=== PATIENT | male | born 1970 | race Caucasian/White ===

== ENCOUNTER 2024-07-18 00:37 | Outpatient (CLI) | payer OTHER, SELFPAY ==
[2024-07-18] MEDS: Inhaler, Assist Device 1 EACH MC (10:56)
[2024-07-18] MEDS: Levalbuterol HFA 15 GM INH 4 PUFF IH (10:56)
--- NOTE | 2024-07-24 21:13 | W.PFT ---
Date of service: 07/18/24 Time of Service: 10:03 Pulmonary Function Test Result Indications: VÁSQUEZ Interpretation Spirometry: No airflow limitation. No bronchodilator response. Impression Normal spirometry Clinical Correlation therefore is recommended.
== END 2024-07-18 00:38 | disposition home or self-care (01) ==
LOC: RT 00:37
PROVIDERS: PCP Nurse Practitioner Family; Visit Provider Student in an Organized Health Care Education/Training Program
DX: R06.09 Other forms of dyspnea (principal)
CPT/HCPCS: 94060

== ENCOUNTER 2024-10-18 19:55 | Emergency (ER) | payer OTHER, SELFPAY ==
[2024-10-18] VITALS (29 sets, daily range): BP systolic 96–129; BP diastolic 50–82; PULSE 44–100; RESP 14–26; TEMP 37; O2SAT 95–100
--- NOTE | 2024-10-18 19:30 | RT.EKG_ITS ---
APPROVED REPORT Exam: Resting ECG Reason for Exam: chest pain Patient Location: E HR:100 bpm ECG Measurements Heart Rate 100 AXIS MT 147 P 78 QRSd 104 QRS 82 QT 342 T -57 QTc 442 Conclusion Sinus tachycardia, rate 100 No interval abnormalities Q wave and T wave inversion II, III, aVF. No priors available for comparison T wave inversion V5-V6 No STEMI
--- NOTE | 2024-10-18 20:15 | DI.RAD_ITS ---
Exam(s) XR PORTABLE CHEST AP EXAM: XR PORTABLE CHEST AP CLINICAL HISTORY: Chest pain. TECHNIQUE: 2D digital imaging was performed. COMPARISON: No exams were available for comparison FINDINGS: Single AP portable view. There is sternotomy wires. Heart size is upper normal. The mediastinum is not widened. Lungs are clear. No infiltrates nor obvious pleural effusions. IMPRESSION: No acute pulmonary findings on this single AP portable view of the chest. DATA REPOSITORY: RADIATION DOSE DELIVERED:
[2024-10-18 20:33] LABS: Abs Immature Grans 0.03 10^3/uL (0.0-0.06); HCT 40.2 % (40.0-50.0); HGB 13.7 g/dL (13.5-17.5); Immature Grans % 0.3 %; MCH 32.0 pg (27.0-33.0); MCHC 34.1 % (32.0-36.0); MCV 94 fL (80-95); MPV 10.9 fL (8.0-11.0); Platelet Count 383 10^3/uL (130-400); RBC 4.28 10^6/uL (4.36-5.78); RDW 13.3 % (11.8-14.1); RDW-SD 46.1 fL; WBC 10.97 10^3/uL (4.4-10.8)
[2024-10-18 20:48] LABS: INR 1.1 (0.9-1.1); PTT Activated 27.7 sec (20.6-30.2); Prothrombin Time 11.2 sec (9.1-11.1)
[2024-10-18 21:03] LABS: ALT 31 U/L (16-63); AST 15 U/L (15-37); Albumin 3.9 g/dL (3.4-5.0); Alkaline Phosphatase 69 U/L (46-116); Anion Gap 13.3 mmol/L (3-11); BUN 19 mg/dL (7-18); Bilirubin, Total 0.6 mg/dL (0.2-1.0); CO2 20.7 mmol/L (21.0-32.0); Calcium 8.5 mg/dL (8.5-10.1); Chloride 103 mmol/L (98-107); Estimated GFR 88.88 (mL/min/1.73m2); Glucose 247 mg/dL (74-106); Lipase 30 U/L (<78); Magnesium 1.9 mg/dL (1.8-2.4); Potassium 3.7 mmol/L (3.5-5.1); Sodium 137 mmol/L (136-145); Total Protein 7.0 g/dL (6.4-8.2); Troponin I 8 ng/L (<or=76)
--- NOTE | 2024-10-18 21:11 | DI.VRAD_ITS ---
PROCEDURE INFORMATION: Exam: XR Chest Exam date and time: 10/18/2024 8:38 PM Age: 54 years old Clinical indication: Other: Chest pain TECHNIQUE: Imaging protocol: Radiologic exam of the chest. Views: 1 view. COMPARISON: No relevant prior studies available. FINDINGS: Lungs: Unremarkable. No consolidation. Pleural spaces: Unremarkable. No pleural effusion. No pneumothorax. Heart/Mediastinum: Unremarkable. No cardiomegaly. Bones/joints: Sternotomy wires noted. Mild degenerative changes of the spine and shoulders. No acute osseous abnormality. IMPRESSION: No acute disease Dictated and Authenticated by: Santiago Flores MD. Orderin Vivek Jean MD
--- NOTE | 2024-10-18 21:30 | DI.CT_ITS ---
Exam(s) CT CHEST PE CTA EXAM: CT CHEST PE CTA CLINICAL HISTORY: Chest pain, Hx CAD. TECHNIQUE: Imaging Protocol: CT angiography of the chest was performed using pulmonary embolus protocol. Multi planar reconstructions were performed. CONTRAST MATERIAL: Intravenous: Omnipaque 350 Contrast volume: 70 cc COMPARISON: CR,XR XR PORTABLE CHEST AP from 10/18/2024 FINDINGS: CHEST: PULMONARY ARTERIES: There are no intraluminal filling defects to suggest acute pulmonary emboli. LUNGS: There are no infiltrates nor evidence of pulmonary infarction.. There are no pleural effusions. No significant lung nodules. MEDIASTINUM: There is no hilar nor mediastinal adenopathy. Visualized thyroid unremarkable. CARDIAC: There are sternotomy wires. Heart size is normal. There is no pericardial effusion.Caliber of the thoracic aorta is within normal limits. There is no significant shift of the interventricular septum. PARTIALLY VISUALIZED UPPERMOST ABDOMEN: No obvious findings OSSEOUS: No significant osseous lesions.No fractures evident. Post sternotomy changes in the sternum.. IMPRESSION: 1. No evidence of acute pulmonary emboli. No evidence of pulmonary infarction.No pleural effusions. 2. Sternotomy. Heart size normal. No pericardial effusion. No pulmonary edema. RADIATION DOSE DELIVERED: 74.97mGy.cm Total DLP DATA REPOSITORY: All CT scans at this facility are submitted to the National Radiology Data Registry (NRDR) Dose Index Registry (DIR) with the [employer] (A[employer]). RADIATION OPTIMIZATION: All CT scans at this facility use at least one of these dose optimization techniques: automated exposure control; mA and/or kV adjustment per patient size (includes targeted exams where dose is matched to clinical indication); or iterative reconstruction.
--- NOTE | 2024-10-18 21:33 | W.ED.GENAD ---
Discharge Plan Disposition Patient Disposition: [facility] Condition: Stable Discharge Details Clinical Impression: Chest pain Primary Care Provider: Sadia Griffin ED Provider: Miranda Doyle Home Meds and New Rx's Prescriptions: Continued atorvastatin 40 mg tablet 40 mg PO QHS metoprolol succinate 50 mg tablet extended release 24 hr 50 mg PO QAM aspirin 81 mg tablet,delayed release (DR/EC) 81 mg PO QAM metformin 1,000 mg tablet 1,000 mg PO BIDWMEAL nitroglycerin 0.4 mg tablet, sublingual 0.4 mg sublingual Q5M PRN (Reason: chest pain) pramipexole 0.25 mg tablet See Rx Instructions PO QHS Patient Comments: took 2 tabs 10/17/24 Rx Instructions: 1-2 tabs orally every day at bedtime omeprazole 20 mg capsule,delayed release(DR/EC) 20 mg PO QAM fludrocortisone 0.1 mg tablet 0.1 mg PO QAM disulfiram 500 mg tablet 500 mg PO QAM lamotrigine 100 mg tablet 100 mg PO QAM loratadine 10 mg tablet 10 mg PO QAM duloxetine 30 mg capsule,delayed release(DR/EC) 30 mg PO QAM pregabalin 100 mg capsule 100 mg PO TID quetiapine 50 mg tablet 50 mg PO DAILY PRN (Reason: anxiety or agitation) quetiapine 50 mg tablet extended release 24 hr 50 mg PO QHS Eliquis 5 mg tablet 5 mg PO BID Jardiance 25 mg tablet 25 mg PO QAM Discharge Instructions Instructions: Chest Pain, Adult ED Additional Instructions: At this time no evidence of acute heart attack, no evidence of aortic aneurysm or pulmonary embolism. Please follow-up with your manager publishing and/or PCP for further evaluation. Follow up with primary care provider in 3-5 days. Return to ED sooner if any worsening or concerns. Referrals: [facility]IOLOG[facility] [place] [OTHER, Cardiology] - Return if symptoms worsen Referral Note: ER follow up Clinical Impression: Chest pain Sadia Griffin [Primary Care Provider, Medicine] - 2 weeks Discharge Data Discharge Date/Time-TO BE ENTERED AT DEPARTURE: 10/18/24 23:04 HPI General Mode of arrival: EMS. Date/Time Provider Initiated Documentation: 10/18/24 20:26. Limitations to Documentation: no limitations. Information obtained by: patient, police, EMS, RN notes reviewed and old records reviewed. HPI Narrative: 54-year-old male presents to the ER with a chief complaint of left-sided chest pain that began this morning. He does have an extensive cardiac history is had open heart surgery reports that he was recently admitted at [facility] and discharged couple months ago had a cath. He states that he took nitro this morning before shower and was given 2 nitro sublingual prior to arrival with no relief. He reports dizziness and radiation into the back. Was given Aspirin 325 mg PO [employer]. Patient was recently taken to [facility] was there approximately an hour began starting to have chest pain. Patient does have a history of CAD, does take metformin, Jardiance, Eliquis atorvastatin 81 mg aspirin. Related Data Home Medications ?Medication ?Instructions ?Recorded ?Confirmed apixaban 5 mg tablet (Eliquis) 5 mg PO BID 10/18/24 10/18/24 aspirin 81 mg tablet,delayed 81 mg PO QAM 10/18/24 10/18/24 release atorvastatin 40 mg tablet 40 mg PO QHS 10/18/24 10/18/24 disulfiram 500 mg tablet 500 mg PO QAM 10/18/24 10/18/24 duloxetine 30 mg capsule,delayed 30 mg PO QAM 10/18/24 10/18/24 release empagliflozin 25 mg tablet 25 mg PO QAM 10/18/24 10/18/24 (Jardiance) fludrocortisone 0.1 mg tablet 0.1 mg PO QAM 10/18/24 10/18/24 lamotrigine 100 mg tablet 100 mg PO QAM 10/18/24 10/18/24 loratadine 10 mg tablet 10 mg PO QAM 10/18/24 10/18/24 metformin 1,000 mg tablet 1,000 mg PO BIDWMEAL 10/18/24 10/18/24 metoprolol succinate 50 mg 50 mg PO QAM 10/18/24 10/18/24 tablet,extended release 24 hr nitroglycerin 0.4 mg sublingual 0.4 mg sublingual Q5M PRN chest 10/18/24 10/18/24 tablet pain omeprazole 20 mg capsule,delayed 20 mg PO QAM 10/18/24 10/18/24 release pramipexole 0.25 mg tablet See Rx Instructions PO QHS 10/18/24 10/18/24 pregabalin 100 mg capsule 100 mg PO TID 10/18/24 10/18/24 quetiapine 50 mg tablet 50 mg PO DAILY PRN anxiety or 10/18/24 10/18/24 agitation quetiapine 50 mg tablet,extended 50 mg PO QHS 10/18/24 10/18/24 release 24 hr Allergies Allergy/AdvReac Type Severity Reaction Status Date / Time Penicillins Allergy Anaphylaxis Verified 10/18/24 20:01 shellfish derived Allergy Anaphylaxis Verified 10/18/24 20:01 Sulfa (Sulfonamide Allergy Skin Rash Verified 10/18/24 20:01 Antibiotics) bee pollen AdvReac Anaphylaxis Verified 10/18/24 20:01 General Stated Complaint: Chest Pain REINA: 3 Review of Systems All systems reviewed & are unremarkable except as noted in HPI and below Cardiovascular Cardiovascular: Reports as per HPI, Reports chest pain, Reports lightheadedness, Reports radiating jaw, neck or arm pain and Reports dyspnea Respiratory Respiratory: Reports dyspnea Gastrointestinal Gastrointestinal: Denies abdominal pain, Denies diarrhea and Denies nausea Exam Narrative Exam Narrative: Constitutional: Alert and oriented x3. Appears stated age. Normal body habitus. Head: Normocephalic, no trauma. Eyes: Pupils PERRL, Red reflex noted, EOM's intact. Eyelids symmetrical without lesions, discharge, or swelling. ENT: Bilateral TM's WNL, External ear normal to inspection, no mastoid TTP, swelling, or erythema, Nasal turbinates WNL, no nasal discharge. Normal dentition, Posterior pharynx WNL, no exudate. Chest: RRR, Normal S1, S2, distal pulses intact. Does have a midline vertical scar which is healed. Has Resp: Lungs clear to auscultation bilaterally, no wheezes, rales, or rhonchi. Abdomen: Soft, non-distended, Normoactive bowel sounds all 4 quads. Musculoskeletal: Normal gait, Moves all 4 extremities without difficulty. Skin: No suspicious rashes or lesions. Capillary refill less than 2 sec. Neurologic: Cranial nerves II-XII intact. Alert and oriented x 3. Motor: No deficits noted. Sensory: Intact bilaterally all 4 extremities. Hematologic/Lymphatic: No ecchymosis, no lymphadenopathy. Course Vital Signs Vital signs: Vital Signs Temperature 37.0 C 10/18/24 19:55 Pulse 98 H 10/18/24 19:55 Respiratory Rate 18 10/18/24 19:55 Blood Pressure 96/55 L 10/18/24 19:55 Pulse Oximetry 98 10/18/24 19:55 Temperature 37.0 C 10/18/24 19:55 Pulse 85 10/18/24 20:40 Pulse 85 10/18/24 20:40 Respiratory Rate 21 10/18/24 20:40 Blood Pressure 116/58 L 10/18/24 20:31 Blood Pressure Mean 75 10/18/24 20:31 Pulse Oximetry 95 10/18/24 20:40 Pain Level 7 10/18/24 19:55 Lab/Test Results Lab/Test Results: Laboratory Tests Range/Units 10/18/24 20:16 WBC (4.4-10.8) 10^3/uL 10.97 H RBC (4.36-5.78) 10^6/uL 4.28 L Hgb (13.5-17.5) g/dL 13.7 Hct (40.0-50.0) % 40.2 MCV (80-95) fL 94 MCH (27.0-33.0) pg 32.0 MCHC (32.0-36.0) % 34.1 RDW (11.8-14.1) % 13.3 Plt Count (130-400) 10^3/uL 383 MPV (8.0-11.0) fL 10.9 Immature Gran % % 0.3 Neutrophils % % 73.2 Lymphocytes % % 19.9 Monocytes % % 4.4 Eosinophils % % 0.9 Basophils % % 1.3 Nucleated RBC % (0.0-0.3) % 0.0 Absolute Neutrophils (1.2-6.7) 10^3/uL 8.03 H Absolute Lymphocytes (1.2-3.4) 10^3/uL 2.18 Absolute Monocytes (0.1-0.8) 10^3/uL 0.48 Absolute Eosinophils (0.0-0.7) 10^3/uL 0.10 Absolute Basophils (0.0-0.2) 10^3/uL 0.14 PT (9.1-11.1) sec 11.2 H INR (0.9-1.1) 1.1 APTT (20.6-30.2) sec 27.7 Sodium (136-145) mmol/L 137 Potassium (3.5-5.1) mmol/L 3.7 Chloride (98-107) mmol/L 103 Carbon Dioxide (21.0-32.0) mmol/L 20.7 L Anion Gap (3-11) mmol/L 13.3 H BUN (7-18) mg/dL 19 H Creatinine (0.70-1.30) mg/dL 1.0 Est GFR (CKD-EPI 2020) (mL/min/1.73m2) 88.88 Glucose (74-106) mg/dL 247 H Calcium (8.5-10.1) mg/dL 8.5 Magnesium (1.8-2.4) mg/dL 1.9 Total Bilirubin (0.2-1.0) mg/dL 0.6 AST (15-37) U/L 15 ALT (16-63) U/L 31 Alkaline Phosphatase (46-116) U/L 69 Troponin I (<or=76) ng/L 8 Total Protein (6.4-8.2) g/dL 7.0 Albumin (3.4-5.0) g/dL 3.9 Lipase (<78) U/L 30 Medical Decision Making Patient presents with slightly soft blood pressure 96/55, currently is 107/71, WBCs 10.97 RBCs 4.28, PT 11.2 seconds, anion gap 13.3 BUN 19 creatinine 1.0 glucose 247, initial troponin within normal limits at 8 lipase is 30. Chest x-ray shows no acute cardiopulmonary abnormality. EKG shows sinus tachycardia, no previous EKG available for comparison, please see official report. CT chest ordered to rule out PE versus AAA. Other differential diagnosis includes but not limited to NSTEMI, MS, CAD At this time patient has had 2 negative serial troponins, CT chest shows no evidence for PE no aortic aneurysm. Patient has remained hemodynamically stable. BUN is slightly elevated at 19, creatinine 1.0 glucose is elevated to 47. Patient does take Jardiance. Will instruct to continue with previously prescribed medications. Patient will be discharged into the care of law enforcement. Will encourage follow-up with PCP and/or manager publishing if symptoms persist. This text was generated using Convr[employer]ation system, please disregard any oddities of phrase or misspellings. Medical Records Medical records reviewed: Yes I reviewed the patient's medical records. Imaging Data Radiologic Study: Imaging: CT Scan Radiologist's impression: COMPARISON: CR XR PORTABLE CHEST AP 10/18/2024 8:38 PM FINDINGS: Pulmonary arteries: Normal. No pulmonary emboli. Aorta: Unremarkable. No aortic aneurysm. No aortic dissection. Lungs: Unremarkable. No consolidation. No masses. Pleural spaces: Unremarkable. No pneumothorax. No pleural effusion. Heart: Unremarkable. No cardiomegaly. No pericardial effusion. Lymph nodes: Unremarkable. No enlarged lymph nodes. Bones/joints: Old post sternotomy changes noted. No acute fracture. Soft tissues: Unremarkable. IMPRESSION: No acute findings Lab Data Lab results reviewed: Yes I reviewed the patient's lab results. Labs: Laboratory Tests Range/Units 10/18/24 10/18/24 20:16 21:17 WBC (4.4-10.8) 10^3/uL 10.97 H RBC (4.36-5.78) 10^6/uL 4.28 L Hgb (13.5-17.5) g/dL 13.7 Hct (40.0-50.0) % 40.2 MCV (80-95) fL 94 MCH (27.0-33.0) pg 32.0 MCHC (32.0-36.0) % 34.1 RDW (11.8-14.1) % 13.3 Plt Count (130-400) 10^3/uL 383 MPV (8.0-11.0) fL 10.9 Immature Gran % % 0.3 Neutrophils % % 73.2 Lymphocytes % % 19.9 Monocytes % % 4.4 Eosinophils % % 0.9 Basophils % % 1.3 Nucleated RBC % (0.0-0.3) % 0.0 Absolute Neutrophils (1.2-6.7) 10^3/uL 8.03 H Absolute Lymphocytes (1.2-3.4) 10^3/uL 2.18 Absolute Monocytes (0.1-0.8) 10^3/uL 0.48 Absolute Eosinophils (0.0-0.7) 10^3/uL 0.10 Absolute Basophils (0.0-0.2) 10^3/uL 0.14 PT (9.1-11.1) sec 11.2 H INR (0.9-1.1) 1.1 APTT (20.6-30.2) sec 27.7 Sodium (136-145) mmol/L 137 Potassium (3.5-5.1) mmol/L 3.7 Chloride (98-107) mmol/L 103 Carbon Dioxide (21.0-32.0) mmol/L 20.7 L Anion Gap (3-11) mmol/L 13.3 H BUN (7-18) mg/dL 19 H Creatinine (0.70-1.30) mg/dL 1.0 Est GFR (CKD-EPI 2020) (mL/min/1.73m2) 88.88 Glucose (74-106) mg/dL 247 H Calcium (8.5-10.1) mg/dL 8.5 Magnesium (1.8-2.4) mg/dL 1.9 Total Bilirubin (0.2-1.0) mg/dL 0.6 AST (15-37) U/L 15 ALT (16-63) U/L 31 Alkaline Phosphatase (46-116) U/L 69 Troponin I (<or=76) ng/L 8 8 Total Protein (6.4-8.2) g/dL 7.0 Albumin (3.4-5.0) g/dL 3.9 Lipase (<78) U/L 30 PFSH All Active Problems (Updated 10/18/24 @ 22:57 by Miranda Doyle NP) Chest pain (Acute) Social History Smoking/Tobacco Use Status: Never Smoking risk assessment performed?: Yes Substance use type: does not use
[2024-10-18 21:44] LABS: Troponin I 8 ng/L (<or=76)
[2024-10-18] MEDS: Normal Saline - Diluent 50 ML VIAL IJ (21:57)
[2024-10-18] MEDS: Omnipaque 350 MG/ML 100 ML BTL 70 ML IJ (21:57)
--- NOTE | 2024-10-18 21:58 | TELEP.MEDREC ---
Date of service: 10/18/24 Time of Service: 21:58 Telepharmacy Home Med Rec Allergies Allergies: Penicillins Allergy (Verified 10/18/24 20:01) Anaphylaxis shellfish derived Allergy (Verified 10/18/24 20:01) Anaphylaxis Sulfa (Sulfonamide Antibiotics) Allergy (Verified 10/18/24 20:01) Skin Rash bee pollen Adverse Reaction (Verified 10/18/24 20:01) Anaphylaxis Interview Person Interviewed: Patient Quality Quality of Interview/Accuracy of Medication List: Good Sources Sources used to compile medication list: SureScripts Changes made to Home Medication List: ADDITIONS: all medications were added to the home med list DELETIONS: none CHANGES: none Additional Notes Additional Notes: pramipexole 0.25 mg last dispensed #90/30 days supply. Directions are not visible, patient reported how they are currently taking. Recommended Changes Recommended Changes(reason for recommendation): none Attestation: The home medication list is now updated to the best of my knowledge and is ready to be reconciled by the provider. Please contact the TelePharmacy Medication Reconciliation Pharmacist at for any questions.
--- NOTE | 2024-10-18 22:21 | DI.VRAD_ITS ---
PROCEDURE INFORMATION: Exam: CTA Chest With Contrast Exam date and time: 10/18/2024 9:58 PM Age: 54 years old Clinical indication: Other: Chest pain, HX cad TECHNIQUE: Imaging protocol: Computed tomographic angiography of the chest with contrast. Exam focused on the arteries. 3D rendering (Not supervised by radiologist): MIP and/or 3D reconstructed images were created by the technologist. Contrast material: OMNIPAQUE 350; Contrast volume: 70 ml; Contrast route: INTRAVENOUS (IV); COMPARISON: CR XR PORTABLE CHEST AP 10/18/2024 8:38 PM FINDINGS: Pulmonary arteries: Normal. No pulmonary emboli. Aorta: Unremarkable. No aortic aneurysm. No aortic dissection. Lungs: Unremarkable. No consolidation. No masses. Pleural spaces: Unremarkable. No pneumothorax. No pleural effusion. Heart: Unremarkable. No cardiomegaly. No pericardial effusion. Lymph nodes: Unremarkable. No enlarged lymph nodes. Bones/joints: Old post sternotomy changes noted. No acute fracture. Soft tissues: Unremarkable. IMPRESSION: No acute findings. Dictated and Authenticated by: Santiago Flores MD. Orderin Vivek Jean MD
== END 2024-10-18 23:04 ==
LOC: ER 23:07
PROVIDERS: Emergency Provider Registered Nurse Emergency; PCP Nurse Practitioner Family
DX: R07.9 Chest pain, unspecified (principal); R00.0 Tachycardia, unspecified; I25.10 Atherosclerotic heart disease of native coronary artery without angina pectoris; Z95.1 Presence of aortocoronary bypass graft; Z79.82 Long term (current) use of aspirin; Z79.01 Long term (current) use of anticoagulants
CPT/HCPCS: 71275; 80053; 83690; 93005; 99285; 71045; 83735; 84484; 85025; 85610; 85730; 93010; 99284; J3490

== ENCOUNTER 2024-10-22 18:26 | Emergency (ER) | payer OTHER, SELFPAY ==
[2024-10-22] VITALS (29 sets, daily range): BP systolic 91–126; BP diastolic 46–71; PULSE 59–86; RESP 14–26; TEMP 36.6–36.9; O2SAT 97–99
--- NOTE | 2024-10-22 18:00 | RT.EKG_ITS ---
APPROVED REPORT Exam: Resting ECG Reason for Exam: chest pain Patient Location: E HR:76 bpm ECG Measurements Heart Rate 76 AXIS NC 155 P 65 QRSd 109 QRS 61 QT 381 T -32 QTc 428 Conclusion Sinus rhythm at a rate of [address] change, with PVC, EKG is similar to prior on 10/18/2024
--- NOTE | 2024-10-22 18:09 | DI.RAD_ITS ---
Exam(s) XR PORTABLE CHEST AP EXAM: XR PORTABLE CHEST AP CLINICAL HISTORY: chest pain TECHNIQUE: 2D digital imaging was performed of the chest. One image was obtained. An AP view was obtained. COMPARISON: CR,XR XR PORTABLE CHEST AP from 10/18/[address] CHEST PE CTA from 10/18/2024 FINDINGS: MEDIASTINUM: Normal. HEART: Normal. PULMONARY VASCULATURE: Normal. LUNGS: Clear. PLEURAL SPACE: No pleural effusion or pneumothorax. BONE:Within normal limits for the patient's age. There again seen findings of a median sternotomy. OTHER FINDINGS:Normal. IMPRESSION: 1. No acute pulmonary findings. 2. The preliminary [facility] report was reviewed. DATA REPOSITORY: RADIATION DOSE DELIVERED:
--- NOTE | 2024-10-22 18:41 | W.ED.GENAD ---
Discharge Plan Disposition Patient Disposition: Home Condition: Stable Discharge Details Clinical Impression: Chest pain Primary Care Provider: Sadia Griffin ED Provider: Patrica Draper Home Meds and New Rx's Prescriptions: No Action atorvastatin 40 mg tablet 40 mg PO QHS metoprolol succinate 50 mg tablet extended release 24 hr 50 mg PO QAM aspirin 81 mg tablet,delayed release (DR/EC) 81 mg PO QAM metformin 1,000 mg tablet 1,000 mg PO BIDWMEAL nitroglycerin 0.4 mg tablet, sublingual 0.4 mg sublingual Q5M PRN (Reason: chest pain) pramipexole 0.25 mg tablet See Rx Instructions PO QHS Patient Comments: took 2 tabs 10/17/24 Rx Instructions: 1-2 tabs orally every day at bedtime omeprazole 20 mg capsule,delayed release(DR/EC) 20 mg PO QAM fludrocortisone 0.1 mg tablet 0.1 mg PO QAM disulfiram 500 mg tablet 500 mg PO QAM lamotrigine 100 mg tablet 100 mg PO QAM loratadine 10 mg tablet 10 mg PO QAM duloxetine 30 mg capsule,delayed release(DR/EC) 30 mg PO QAM pregabalin 100 mg capsule 100 mg PO TID quetiapine 50 mg tablet 50 mg PO DAILY PRN (Reason: anxiety or agitation) quetiapine 50 mg tablet extended release 24 hr 50 mg PO QHS Eliquis 5 mg tablet 5 mg PO BID Jardiance 25 mg tablet 25 mg PO QAM Discharge Instructions Instructions: Chest Pain, Adult ED Additional Instructions: You had an EKG done here which appears similar to your prior EKG. You had blood work done including heart protein (troponin), the first and second troponin both came back within normal limits. You had D-dimer checked which is a marker for blood clots and that came back normal also. Your chest x-ray showed no acute finding. The rest of your blood work came back unremarkable. You did not meet hospitalization criteria tonight nevertheless, I encourage you to follow-up with your political science chair in [facility] [place] on an outpatient basis. In the meantime if you do get worse or develop any new or concerning symptoms, please return to the Emergency Department for re-evaluation. Discharge Data Discharge Date/Time-TO BE ENTERED AT DEPARTURE: 10/22/24 21:03 HPI General Date/Time Provider Initiated Documentation: 10/22/24 18:32. HPI Narrative: The patient is a 54-year-old male with a history of coronary artery disease status post CABG in 2021 at [facility] [place] who comes the emergency department for chest pain. The patient reports that he was walking when he developed pain on the right side of his chest. Reports it feels like a stabbing pain and it comes and goes without exacerbating or relieving factor. Reports at its worse it was 10/10 in intensity. The patient is incarcerated and while in custody, he was given full dose aspirin, nitroglycerin and fentanyl. Reports his pain went down to 8/10 but again reports that it comes and goes. Reports that he has had palpitations on and off this week. Denies shortness of breath. Admits to history of heart attacks in the past and states his pain today feels different. Denies trauma or injury to the chest. Denies fever or chills. Denies abdominal pain, nausea or vomiting. Denies leg pain or swelling. Related Data Home Medications ?Medication ?Instructions ?Recorded ?Confirmed apixaban 5 mg tablet (Eliquis) 5 mg PO BID 10/18/24 10/18/24 aspirin 81 mg tablet,delayed 81 mg PO QAM 10/18/24 10/18/24 release atorvastatin 40 mg tablet 40 mg PO QHS 10/18/24 10/18/24 disulfiram 500 mg tablet 500 mg PO QAM 10/18/24 10/18/24 duloxetine 30 mg capsule,delayed 30 mg PO QAM 10/18/24 10/18/24 release empagliflozin 25 mg tablet 25 mg PO QAM 10/18/24 10/18/24 (Jardiance) fludrocortisone 0.1 mg tablet 0.1 mg PO QAM 10/18/24 10/18/24 lamotrigine 100 mg tablet 100 mg PO QAM 10/18/24 10/18/24 loratadine 10 mg tablet 10 mg PO QAM 10/18/24 10/18/24 metformin 1,000 mg tablet 1,000 mg PO BIDWMEAL 10/18/24 10/18/24 metoprolol succinate 50 mg 50 mg PO QAM 10/18/24 10/18/24 tablet,extended release 24 hr nitroglycerin 0.4 mg sublingual 0.4 mg sublingual Q5M PRN chest 10/18/24 10/18/24 tablet pain omeprazole 20 mg capsule,delayed 20 mg PO QAM 10/18/24 10/18/24 release pramipexole 0.25 mg tablet See Rx Instructions PO QHS 10/18/24 10/18/24 pregabalin 100 mg capsule 100 mg PO TID 10/18/24 10/18/24 quetiapine 50 mg tablet 50 mg PO DAILY PRN anxiety or 10/18/24 10/18/24 agitation quetiapine 50 mg tablet,extended 50 mg PO QHS 10/18/24 10/18/24 release 24 hr Allergies Allergy/AdvReac Type Severity Reaction Status Date / Time Penicillins Allergy Anaphylaxis Verified 10/18/24 20:01 shellfish derived Allergy Anaphylaxis Verified 10/18/24 20:01 Sulfa (Sulfonamide Allergy Skin Rash Verified 10/18/24 20:01 Antibiotics) bee pollen AdvReac Anaphylaxis Verified 10/18/24 20:01 General Stated Complaint: Chest Pain REINA: 2 Review of Systems Narrative: Review of systems are negative except as mentioned. Exam Narrative Exam Narrative: General appearance: The patient is alert, has no immediate need for airway protection and no signs of toxicity. Neck: Supple, non-tender. Respiratory: There are no retractions. Lungs are clear to auscultation. Cardiovascular: Regular in rate and rhythm. Radial pulses are intact and equal. Gastrointestinal: The abdomen is soft and nondistended with normal bowel sounds. Nontender to palpation throughout. Neurological: The patient is alert, awake and oriented x 3. Skin: Warm and dry. Back: No CVA tenderness is noted to palpation bilaterally. Extremities: No lower extremity edema or calf tenderness is noted to palpation bilaterally. No reproducible chest wall tenderness is noted to palpation. Course Vital Signs Vital signs: Vital Signs Temperature 36.9 C 10/22/24 18:32 Pulse 86 10/22/24 18:32 Respiratory Rate 17 10/22/24 18:32 Blood Pressure 123/51 L 10/22/24 18:32 Pulse Oximetry 99 10/22/24 18:32 Temperature 36.9 C 10/22/24 18:32 Temperature Source Temporal Artery Scan 10/22/24 18:32 Pulse 86 10/22/24 18:32 Respiratory Rate 17 08/03/25 18:32 Blood Pressure 123/51 L 10/22/24 18:32 Blood Pressure Position Sitting 10/22/24 18:32 Pulse Oximetry 99 10/22/24 18:32 Oxygen Delivery Method Room Air 10/22/24 18:32 Oxygen Flow Rate 0 10/22/24 18:32 Medical Decision Making Cardiac work-up has been started on this patient. I did order IV fentanyl also given patient's continued chest pain complaint. EKG is done and it is similar to prior EKG. Initial troponin is within normal limits. CBC and CMP are non-diagnostic. Chest x-ray is unremarkable. D-dimer is back and it is within normal limits as well. I have updated the patient of work-up result thus far and is relieved. I told him of plan for repeat troponin and he is willing to wait. In the meantime, he reports that his chest pain has improved. He remains hemodynamically stable as well. Repeat troponin is done and it continues to be within normal limits. I updated the patient again of work-up result and he is glad to hear of it. He tells me that he was supposed to see his political science chair in [facility] [place] for the same thing over a month ago but did not get a chance to follow-up. I told him outpatient follow-up with his political science chair is still my recommendation so he informs me that he will speak with his contract attorney to help him clear his legal woes so he can be released. For now, I told him that if he develops recurrent symptoms or any new or worsening symptoms, go to the [facility] and he can always get re-evaluated here. The patient voiced understanding of this plan and agreed. Imaging Data Radiologic Study: Imaging: X-Ray (chest) Radiologist's impression: No evidence for acute abnormality in the chest. ECG Data Attestation: I personally reviewed and interpreted this ECG (s) as follows: (Sinus rhythm at a rate of [address] change, with PVC, EKG is similar to prior on 10/18/2024) PFSH All Active Problems (Updated 10/22/24 @ 20:35 by Patrica Draper DO) Chest pain (Acute) Social History Smoking/Tobacco Use Status: Never Smoking risk assessment performed?: Yes Alcohol Intake: current Alcohol Intake frequency: holidays/special occasions only Substance use type: does not use
[2024-10-22 19:03] LABS: Abs Immature Grans 0.02 10^3/uL (0.0-0.06); HCT 36.6 % (40.0-50.0); HGB 12.5 g/dL (13.5-17.5); Immature Grans % 0.2 %; MCH 31.8 pg (27.0-33.0); MCHC 34.2 % (32.0-36.0); MCV 93 fL (80-95); MPV 11.4 fL (8.0-11.0); Platelet Count 288 10^3/uL (130-400); RBC 3.93 10^6/uL (4.36-5.78); RDW 12.6 % (11.8-14.1); RDW-SD 43.5 fL; WBC 8.48 10^3/uL (4.4-10.8)
[2024-10-22 19:13] LABS: ALT 30 U/L (16-63); AST 16 U/L (15-37); Albumin 3.4 g/dL (3.4-5.0); Alkaline Phosphatase 61 U/L (46-116); Anion Gap 10.3 mmol/L (3-11); BUN 15 mg/dL (7-18); Bilirubin, Total 0.4 mg/dL (0.2-1.0); CO2 22.7 mmol/L (21.0-32.0); Calcium 8.7 mg/dL (8.5-10.1); Chloride 103 mmol/L (98-107); Estimated GFR 100.86 (mL/min/1.73m2); Glucose 291 mg/dL (74-106); Potassium 4.2 mmol/L (3.5-5.1); Sodium 136 mmol/L (136-145); Total Protein 6.5 g/dL (6.4-8.2); Troponin I 9 ng/L (<or=76)
[2024-10-22] MEDS: fentaNYL 25 MCG PATCH TD (19:19)
[2024-10-22 19:34] LABS: D-Dimer 189 ng/mlFEU (<500)
[2024-10-22 20:04] LABS: Troponin I 8 ng/L (<or=76)
--- NOTE | 2024-10-22 20:04 | DI.VRAD_ITS ---
PROCEDURE INFORMATION: Exam: XR Chest Exam date and time: 10/22/2024 7:10 PM Age: 54 years old Clinical indication: Other: Chest pain TECHNIQUE: Imaging protocol: Radiologic exam of the chest. Views: 1 view. COMPARISON: CT CHEST PE CTA 10/18/2024 9:58 PM FINDINGS: Lungs: Unremarkable. No consolidation. Pleural spaces: Unremarkable. No pleural effusion. No pneumothorax. Heart/Mediastinum: Unremarkable. No cardiomegaly. Bones/joints: Status post median sternotomy. IMPRESSION: No evidence for acute abnormality in the chest. Dictated and Authenticated by: Cheryle Overton MD. Orderin Baron Burciaga MD
== END 2024-10-22 21:03 | disposition home or self-care (01) ==
PROVIDERS: Emergency Provider Emergency Medicine; PCP Nurse Practitioner Family
DX: R07.9 Chest pain, unspecified (principal); I25.10 Atherosclerotic heart disease of native coronary artery without angina pectoris; E11.9 Type 2 diabetes mellitus without complications; Z95.1 Presence of aortocoronary bypass graft; Z79.82 Long term (current) use of aspirin; Z79.84 Long term (current) use of oral hypoglycemic drugs; Z79.01 Long term (current) use of anticoagulants
CPT/HCPCS: 80053; 93005; 99285; 71045; 84484; 85025; 85379; 93010; 99284

== ENCOUNTER 2024-10-27 19:21 | Inpatient (IN) | payer MEDICAID, SELFPAY ==
[2024-10-27] VITALS (35 sets, daily range): BP systolic 75–118; BP diastolic 52–68; PULSE 56–83; RESP 12–22; TEMP 36.3; O2SAT 94–100
--- NOTE | 2024-10-27 19:00 | RT.EKG_ITS ---
APPROVED REPORT Exam: Resting ECG Reason for Exam: chest pain Patient Location: E HR:74 bpm ECG Measurements Heart Rate 74 AXIS UT 163 P -21 QRSd 110 QRS -15 QT 378 T 98 QTc 411 Conclusion Sinus rhythm...normal P axis, V-rate 60- 99 Multiple ventricular premature complexes...V complexes w/ short R-R intervls Probable lateral infarct, age indeterminate...Q >35mS, T neg, V5-V6 I aVL Borderline ST elevation, anterior leads...ST >0.15mV in V1-V4 no ST segment or T wave abnormalities to suggest occlusive [place]
[2024-10-27 19:43] LABS: Abs Immature Grans 0.01 10^3/uL (0.0-0.06); HCT 37.3 % (40.0-50.0); HGB 12.3 g/dL (13.5-17.5); Immature Grans % 0.1 %; MCH 31.4 pg (27.0-33.0); MCHC 33.0 % (32.0-36.0); MCV 95 fL (80-95); MPV 12.0 fL (8.0-11.0); Platelet Count 244 10^3/uL (130-400); RBC 3.92 10^6/uL (4.36-5.78); RDW 13.3 % (11.8-14.1); RDW-SD 46.3 fL; WBC 6.99 10^3/uL (4.4-10.8)
[2024-10-27 19:57] LABS: INR 1.0 (0.9-1.1); PTT Activated 25.9 sec (20.6-30.2); Prothrombin Time 10.5 sec (9.1-11.1)
[2024-10-27 20:11] LABS: ALT 24 U/L (16-63); AST 10 U/L (15-37); Albumin 3.5 g/dL (3.4-5.0); Alkaline Phosphatase 58 U/L (46-116); Anion Gap 7.0 mmol/L (3-11); BUN 21 mg/dL (7-18); Bilirubin, Total 0.3 mg/dL (0.2-1.0); CO2 28.0 mmol/L (21.0-32.0); Calcium 8.5 mg/dL (8.5-10.1); Chloride 104 mmol/L (98-107); Estimated GFR 100.86 (mL/min/1.73m2); Glucose 250 mg/dL (74-106); Lipase 37 U/L (<78); Magnesium 2.1 mg/dL (1.8-2.4); NT-proBNP 135 pg/mL (<300); Potassium 4.0 mmol/L (3.5-5.1); Sodium 139 mmol/L (136-145); Total Protein 6.5 g/dL (6.4-8.2); Troponin I 9 ng/L (<or=76)
--- NOTE | 2024-10-27 20:14 | DI.RAD_ITS ---
Exam(s) XR PORTABLE CHEST AP EXAM: XR PORTABLE CHEST AP CLINICAL HISTORY: chest pain TECHNIQUE: 2D digital imaging was performed of the chest. One image was obtained. An AP view was obtained. COMPARISON: CR,XR XR PORTABLE CHEST AP from 10/22/2024 FINDINGS: MEDIASTINUM: Normal. HEART: Normal. Status post CABG. PULMONARY VASCULATURE: Normal. LUNGS: Clear. PLEURAL SPACE: No pleural effusion or pneumothorax. BONE:Within normal limits for the patient's age. OTHER FINDINGS:Normal. IMPRESSION: 1. No acute pulmonary findings. 2. The preliminary [facility] report was reviewed. DATA REPOSITORY: RADIATION DOSE DELIVERED:
--- NOTE | 2024-10-27 20:15 | RT.EKG_ITS ---
APPROVED REPORT Exam: Resting ECG Reason for Exam: chest pain Patient Location: E HR:62 bpm ECG Measurements Heart Rate 62 AXIS DE 172 P 64 QRSd 110 QRS 56 QT 393 T -33 QTc 399 Conclusion Sinus rhythm...normal P axis, V-rate 60- 99 Inferolateral infarct, old...Q >40mS, inf-lat leads Borderline ST elevation, anterior leads...ST >0.15mV in V1-V4 no ST segment or T wave abnormalities to suggest occlusive IA
--- NOTE | 2024-10-27 20:41 | DI.VRAD_ITS ---
PROCEDURE INFORMATION: Exam: XR Chest Exam date and time: 10/27/2024 8:15 PM Age: 54 years old Clinical indication: Chest pressure; Prior surgery; Surgery date: 6+ months; Surgery type: Open heart surgery; Chest pain TECHNIQUE: Imaging protocol: Radiologic exam of the chest. Views: 1 view. COMPARISON: CR XR PORTABLE CHEST AP 10/22/2024 7:10 PM FINDINGS: Lungs: Unremarkable. No consolidation. Pleural spaces: Unremarkable. No pleural effusion. No pneumothorax. Heart/Mediastinum: Unremarkable. No cardiomegaly. Bones/joints: Unremarkable. IMPRESSION: No acute findings. Dictated and Authenticated by: Jefry Palm MD. Orderin Eagle Nunn MD
[2024-10-27 21:40] LABS: Troponin I 9 ng/L (<or=76)
--- NOTE | 2024-10-27 21:53 | W.ED.GENAD ---
Discharge Plan Disposition Condition: Serious Discharge Details Chief Complaint: Chest Pain Clinical Impression: Chest pain, S/P CABG (coronary artery bypass graft), Hypotension Primary Care Provider: Sadia Griffin ED Provider: Arline Guillermo Home Meds and New Rx's Prescriptions: No Action atorvastatin 40 mg tablet 40 mg PO QHS metoprolol succinate 50 mg tablet extended release 24 hr 50 mg PO QAM aspirin 81 mg tablet,delayed release (DR/EC) 81 mg PO QAM metformin 1,000 mg tablet 1,000 mg PO BIDWMEAL nitroglycerin 0.4 mg tablet, sublingual 0.4 mg sublingual Q5M PRN (Reason: chest pain) pramipexole 0.25 mg tablet See Rx Instructions PO QHS Patient Comments: took 2 tabs 10/17/24 Rx Instructions: 1-2 tabs orally every day at bedtime omeprazole 20 mg capsule,delayed release(DR/EC) 20 mg PO QAM fludrocortisone 0.1 mg tablet 0.1 mg PO QAM disulfiram 500 mg tablet 500 mg PO QAM lamotrigine 100 mg tablet 100 mg PO QAM loratadine 10 mg tablet 10 mg PO QAM duloxetine 30 mg capsule,delayed release(DR/EC) 30 mg PO QAM pregabalin 100 mg capsule 100 mg PO TID quetiapine 50 mg tablet 50 mg PO DAILY PRN (Reason: anxiety or agitation) quetiapine 50 mg tablet extended release 24 hr 50 mg PO QHS Eliquis 5 mg tablet 5 mg PO BID Jardiance 25 mg tablet 25 mg PO QAM HPI General Mode of arrival: EMS. Date/Time Provider Initiated Documentation: 10/27/24 20:05. Limitations to Documentation: no limitations. Information obtained by: patient, EMS and old records reviewed. HPI Narrative: 54yo M with hx CABG in 2021 presenting via EMS as STEMI alert. Recent ED visit 10/22/24 for chest pain. He reports current 95% occlusion of a coronary vessel but not sure which one. Today at noon he began to feel aching subseternal chest pain radiating to his right shoulder. Pain started at rest, is severe, and worse with movement. Recieved 325 of ASA, 2 SL nitro, and 150mg of fentanyl for chest pain with some improvement. Pain is still present but not as bad. BP down to 80's/50's of nitro and so did not recieve 3rd dose. No chosrtness of breath, palpaitions, or presyncope. Pain has been constant since onset but waxing and waning in severity. Was in his usual state of health prior to the onset of symptoms at noon. Related Data Home Medications ?Medication ?Instructions ?Recorded ?Confirmed apixaban 5 mg tablet (Eliquis) 5 mg PO BID 10/18/24 10/27/24 aspirin 81 mg tablet,delayed 81 mg PO QAM 10/18/24 10/27/24 release atorvastatin 40 mg tablet 40 mg PO QHS 10/18/24 10/27/24 disulfiram 500 mg tablet 500 mg PO QAM 10/18/24 10/27/24 duloxetine 30 mg capsule,delayed 30 mg PO QAM 10/18/24 10/27/24 release empagliflozin 25 mg tablet 25 mg PO QAM 10/18/24 10/27/24 (Jardiance) fludrocortisone 0.1 mg tablet 0.1 mg PO QAM 10/18/24 10/27/24 lamotrigine 100 mg tablet 100 mg PO QAM 10/18/24 10/27/24 loratadine 10 mg tablet 10 mg PO QAM 10/18/24 10/27/24 metformin 1,000 mg tablet 1,000 mg PO BIDWMEAL 10/18/24 10/27/24 metoprolol succinate 50 mg 50 mg PO QAM 10/18/24 10/27/24 tablet,extended release 24 hr nitroglycerin 0.4 mg sublingual 0.4 mg sublingual Q5M PRN chest 10/18/24 10/27/24 tablet pain omeprazole 20 mg capsule,delayed 20 mg PO QAM 10/18/24 10/27/24 release pramipexole 0.25 mg tablet See Rx Instructions PO QHS 10/18/24 10/27/24 pregabalin 100 mg capsule 100 mg PO TID 10/18/24 10/27/24 quetiapine 50 mg tablet 50 mg PO DAILY PRN anxiety or 10/18/24 10/27/24 agitation quetiapine 50 mg tablet,extended 50 mg PO QHS 10/18/24 10/27/24 release 24 hr Allergies Allergy/AdvReac Type Severity Reaction Status Date / Time Penicillins Allergy Anaphylaxis Verified 10/27/24 19:29 shellfish derived Allergy Anaphylaxis Verified 10/27/24 19:29 Sulfa (Sulfonamide Allergy Skin Rash Verified 10/27/24 19:29 Antibiotics) bee pollen AdvReac Anaphylaxis Verified 10/27/24 19:29 General Stated Complaint: Chest Pain REINA: 2 Review of Systems Narrative: see HPI Exam Narrative Exam Narrative: General: Alert, well appearing, well nourished, in no acute distress. Head: Normocephalic, atraumatic Neck: Trachea midline, ?Neck supple. Cardiac: ?RRR, no murmurs appreciated Resp: No respiratory distress. CTAB. Abd: ?Soft, non-distended, nontender Extremities: ?No deformities.? No peripheral edema. Neurologic: GCS 15. ? Moves all extremities freely against gravity Course Vital Signs Vital signs: Vital Signs Temperature 36.3 C L 10/27/24 19:22 Pulse 83 10/27/24 19:22 Respiratory Rate 20 10/27/24 19:22 Pulse Oximetry 94 10/27/24 19:22 Temperature 36.3 C L 10/27/24 19:22 Temperature Source Skin 10/27/24 19:22 Pulse 63 10/27/24 21:02 Pulse 70 10/27/24 21:02 Respiratory Rate 20 10/27/24 21:02 Respiratory Effort Normal 10/27/24 19:30 Respiratory Depth Normal 10/27/24 19:30 Respiratory Pattern Normal 10/27/24 19:30 Blood Pressure 85/53 L 10/27/24 21:02 Blood Pressure Mean 63 10/27/24 21:02 Pulse Oximetry 97 10/27/24 21:02 Oxygen Delivery Method Nasal Cannula 10/27/24 19:22 Oxygen Flow Rate 4 10/27/24 19:22 Lab/Test Results Lab/Test Results: Laboratory Tests Range/Units 10/27/24 10/27/24 19:30 21:07 WBC (4.4-10.8) 10^3/uL 6.99 RBC (4.36-5.78) 10^6/uL 3.92 L Hgb (13.5-17.5) g/dL 12.3 L Hct (40.0-50.0) % 37.3 L MCV (80-95) fL 95 MCH (27.0-33.0) pg 31.4 MCHC (32.0-36.0) % 33.0 RDW (11.8-14.1) % 13.3 Plt Count (130-400) 10^3/uL 244 MPV (8.0-11.0) fL 12.0 H Immature Gran % % 0.1 Neutrophils % % 52.5 Lymphocytes % % 35.3 Monocytes % % 6.3 Eosinophils % % 3.9 Basophils % % 1.9 Nucleated RBC % (0.0-0.3) % 0.0 Absolute Neutrophils (1.2-6.7) 10^3/uL 3.67 Absolute Lymphocytes (1.2-3.4) 10^3/uL 2.47 Absolute Monocytes (0.1-0.8) 10^3/uL 0.44 Absolute Eosinophils (0.0-0.7) 10^3/uL 0.27 Absolute Basophils (0.0-0.2) 10^3/uL 0.13 PT (9.1-11.1) sec 10.5 INR (0.9-1.1) 1.0 APTT (20.6-30.2) sec 25.9 Sodium (136-145) mmol/L 139 Potassium (3.5-5.1) mmol/L 4.0 Chloride (98-107) mmol/L 104 Carbon Dioxide (21.0-32.0) mmol/L 28.0 Anion Gap (3-11) mmol/L 7.0 BUN (7-18) mg/dL 21 H Creatinine (0.70-1.30) mg/dL 0.9 Est GFR (CKD-EPI 2020) (mL/min/1.73m2) 100.86 Glucose (74-106) mg/dL 250 H Calcium (8.5-10.1) mg/dL 8.5 Magnesium (1.8-2.4) mg/dL 2.1 Total Bilirubin (0.2-1.0) mg/dL 0.3 AST (15-37) U/L 10 L ALT (16-63) U/L 24 Alkaline Phosphatase (46-116) U/L 58 Troponin I (<or=76) ng/L 9 9 NT-Pro-B Natriuret Pep (<300) pg/mL 135 Total Protein (6.4-8.2) g/dL 6.5 Albumin (3.4-5.0) g/dL 3.5 Lipase (<78) U/L 37 Medical Decision Making 54yo M with hx CABG in 2021, reported 95% occlusion of some coronary vessel (he is not sure which) presenting via EMS as STEMI alert. Constant Recent ED visit 10/22/24 for chest pain; note/labs/EKG reviewed with reassuring workup. Onset 1200 at rest of severe substernal aching chest pain radiating to his right shoulder, feels similar to prior heart attack. No hypoxia, tachcyardia, pleurtiic pain, or shortness of breath to suggest pulmonary embolism. From EMS received 325 ASA, 2 doses of SL nitro, 150mcg of fentanyl BP 90's/50's on arrival. Reports pain now mild but still present. -EKG on arrival with ST elevations anterior leads not meeting STEMI criteria, similar to prior EKGs from 10/22/24. Would not give lytics at this time. Plan for additional fentanyl for pain if needed, nitro if BP tolerates -CXR independently reviewed; no focal pneumonia or pneumothorax on my view. Radiology read with no acute findings. -Labs reviewed as below, CBC with mild anemia, CMP with no actionable abnormalities, coags normal, lactate normal, dimer negative, BNP not suggestive of heart failure. Initial troponin 9 reassuring in the setting of 7+ hours of constant pain. Pt subsequently report pain increasing; given nitro wtih some relief. BP then 70's/50's, additional 50mcg fentanyl given for ongoing pain with good effect. Repeat EKG reassuring. Remained borderline hypotensive 80's/50's so 1L IVF ordered. 1 hour troponin stable. Presentation most concerning for unstable angina. Discussed with [facility] cardiology Dr. Dickson; reassuringly patient had LHC there within the last month which showed patent grafts. Patient not thought to warrant further ischemic eval but will need medical management of anginal symptoms. Advised starting imdur 30mg. Given soft pressures here, warrants inpatient observation for initiation of therapy to monitor for tolerability, thought to be appropriate to occur at [facility]. Discussed with Dr. Morton; he will evaluate case. Not accepted for admission at this time. Will be signed out to oncoming physician Dr. Calderon; plan to f/u regarding disposition with Dr. Morton. Lab Data Lab results reviewed: Yes I reviewed the patient's lab results. Labs: Laboratory Tests Range/Units 10/27/24 10/27/24 19:30 21:07 WBC (4.4-10.8) 10^3/uL 6.99 RBC (4.36-5.78) 10^6/uL 3.92 L Hgb (13.5-17.5) g/dL 12.3 L Hct (40.0-50.0) % 37.3 L MCV (80-95) fL 95 MCH (27.0-33.0) pg 31.4 MCHC (32.0-36.0) % 33.0 RDW (11.8-14.1) % 13.3 Plt Count (130-400) 10^3/uL 244 MPV (8.0-11.0) fL 12.0 H Immature Gran % % 0.1 Neutrophils % % 52.5 Lymphocytes % % 35.3 Monocytes % % 6.3 Eosinophils % % 3.9 Basophils % % 1.9 Nucleated RBC % (0.0-0.3) % 0.0 Absolute Neutrophils (1.2-6.7) 10^3/uL 3.67 Absolute Lymphocytes (1.2-3.4) 10^3/uL 2.47 Absolute Monocytes (0.1-0.8) 10^3/uL 0.44 Absolute Eosinophils (0.0-0.7) 10^3/uL 0.27 Absolute Basophils (0.0-0.2) 10^3/uL 0.13 PT (9.1-11.1) sec 10.5 INR (0.9-1.1) 1.0 APTT (20.6-30.2) sec 25.9 Sodium (136-145) mmol/L 139 Potassium (3.5-5.1) mmol/L 4.0 Chloride (98-107) mmol/L 104 Carbon Dioxide (21.0-32.0) mmol/L 28.0 Anion Gap (3-11) mmol/L 7.0 BUN (7-18) mg/dL 21 H Creatinine (0.70-1.30) mg/dL 0.9 Est GFR (CKD-EPI 2020) (mL/min/1.73m2) 100.86 Glucose (74-106) mg/dL 250 H Calcium (8.5-10.1) mg/dL 8.5 Magnesium (1.8-2.4) mg/dL 2.1 Total Bilirubin (0.2-1.0) mg/dL 0.3 AST (15-37) U/L 10 L ALT (16-63) U/L 24 Alkaline Phosphatase (46-116) U/L 58 Troponin I (<or=76) ng/L 9 9 NT-Pro-B Natriuret Pep (<300) pg/mL 135 Total Protein (6.4-8.2) g/dL 6.5 Albumin (3.4-5.0) g/dL 3.5 Lipase (<78) U/L 37 Critical Care Time Critical Care Time Critical Care Time: Yes Total Critical Care Time: 42 Attestation: Due to a high probability of clinically significant, life threatening deterioration, the patient required my highest level of preparedness to intervene emergently and I personally spent this critical care time directly and personally managing the patient. This critical care time included obtaining a history; examining the patient; pulse oximetry; ordering and review of studies; arranging urgent treatment with development of a management plan; evaluation of patient's response to treatment; frequent reassessment; and, discussions with other providers. This critical care time was performed to assess and manage the high probability of imminent, life-threatening deterioration that could result in multi-organ failure. It was exclusive of separately billable procedures and treating other patients and teaching time. PFSH All Active Problems (Updated 10/28/24 @ 00:10 by Arline Guillermo MD) Hypotension (Acute) S/P CABG (coronary artery bypass graft) (Acute) Chest pain (Acute) Social History Smoking/Tobacco Use Status: Never Smoking risk assessment performed?: Yes Alcohol Intake: current Alcohol Intake frequency: holidays/special occasions only Substance use type: does not use
[2024-10-27] MEDS: Normal Saline 1,000 ML 1000 ML IV (22:13)
[2024-10-27] MEDS: fentaNYL 100 MCG/2 ML VIAL 50 MCG IVP (22:56)
[2024-10-27 23:45] LABS: D-Dimer 158 ng/mlFEU (<500)
[2024-10-27 23:52] LABS: Troponin I 9 ng/L (<or=76)
[2024-10-28] VITALS (78 sets, daily range): BP systolic 80–124; BP diastolic 45–80; PULSE 56–80; RESP 9–25; TEMP 35.8–36.8; O2SAT 92–100
[2024-10-28 01:06] LABS: Cannabinoids THC Negative (Negative); METHADONE URINE SCREEN Negative (Negative)
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
--- NOTE | 2024-10-28 03:28 | W.PC.ACHO ---
Registration Status: REG ER Primary Language: Preferred Language: ED Information & Data Chief Complaint Chest Pain 10/27/24 21:55 Triage Note BIBA, STEMI alert. Pt has 10/27/24 19:22 crushing chest pain and a lengthy cardiac hx. 95% vascular occulsion, arterial . 324 ASA, 2 nitro, 150fent per EMS. 18 R AC, Most Recent Vital Signs Temperature 36.3 C L 10/27/24 19:22 Temperature Source Skin 10/27/24 19:22 Pulse 65 10/28/24 00:40 Pulse 66 10/28/24 00:40 Respiratory Rate 14 10/28/24 00:40 Respiratory Effort Normal 10/27/24 19:30 Respiratory Depth Normal 10/27/24 19:30 Respiratory Pattern Normal 10/27/24 19:30 Blood Pressure 83/45 L 10/28/24 00:31 Blood Pressure Mean 54 10/28/24 00:31 Pulse Oximetry 100 10/28/24 00:40 Oxygen Delivery Method Nasal Cannula 10/27/24 19:22 Oxygen Flow Rate 4 10/27/24 19:22 Allergies Penicillins Allergy (Verified 10/27/24 19:29) Anaphylaxis shellfish derived Allergy (Verified 10/27/24 19:29) Anaphylaxis Sulfa (Sulfonamide Antibiotics) Allergy (Verified 10/27/24 19:29) Skin Rash bee pollen Adverse Reaction (Verified 10/27/24 19:29) Anaphylaxis Precautions Isolation Standard precaution 10/27/24 19:29 Active Medications Generic Name Dose Route Start Last Admin Trade Name Freq PRN Reason Stop Dose Admin Fentanyl 50 mcg 10/27/24 22:42 10/27/24 22:56 Fentanyl 100 Mcg/2 Ml Vial IVP 50 mcg Q1H PRN PRN Administration IV IV Catheter Type [Right Saline Lock Antecubital] IV Catheter Type [Left Forearm Saline Lock ] IV Catheter Gauge [Right 18 Antecubital] IV Catheter Gauge [Left 18 Forearm] Diagnostics 10/28/24 10/28/24 10/27/24 Range/Units 02:54 00:39 23:13 WBC (4.4-10.8) 10^3/uL RBC (4.36-5.78) 10^6/uL Hgb (13.5-17.5) g/dL Hct (40.0-50.0) % MCV (80-95) fL MCH (27.0-33.0) pg MCHC (32.0-36.0) % RDW (11.8-14.1) % Plt Count (130-400) 10^3/uL MPV (8.0-11.0) fL Immature Gran % % Neutrophils % % Lymphocytes % % Monocytes % % Eosinophils % % Basophils % % Nucleated RBC % (0.0-0.3) % Absolute Neutrophils (1.2-6.7) 10^3/uL Absolute Lymphocytes (1.2-3.4) 10^3/uL Absolute Monocytes (0.1-0.8) 10^3/uL Absolute Eosinophils (0.0-0.7) 10^3/uL Absolute Basophils (0.0-0.2) 10^3/uL PT (9.1-11.1) sec INR (0.9-1.1) APTT (20.6-30.2) sec D-Dimer 158 (<500) ng/mlFEU VBG Lactate 0.4 (<or=2.0) mmol/L Sodium (136-145) mmol/L Potassium (3.5-5.1) mmol/L Chloride (98-107) mmol/L Carbon Dioxide (21.0-32.0) mmol/L Anion Gap (3-11) mmol/L BUN (7-18) mg/dL Creatinine (0.70-1.30) mg/dL Est GFR (CKD-EPI 2020) (mL/min/1.73m2) Glucose (74-106) mg/dL Calcium (8.5-10.1) mg/dL Magnesium (1.8-2.4) mg/dL Total Bilirubin (0.2-1.0) mg/dL AST (15-37) U/L ALT (16-63) U/L Alkaline Phosphatase (46-116) U/L Troponin I 9 (<or=76) ng/L NT-Pro-B Natriuret Pep (<300) pg/mL Total Protein (6.4-8.2) g/dL Albumin (3.4-5.0) g/dL Lipase (<78) U/L Urine Opiates Screen Negative (Negative) Urine Methadone Screen Negative (Negative) Ur Barbiturates Screen Negative (Negative) Ur Tricyclics Screen Negative (Negative) Ur Amphetamines Screen Negative (Negative) U Benzodiazepines Scrn Positive A (Negative) Urine Cocaine Screen Negative (Negative) Ur THC Screen Negative (Negative) COVID-19 Source Pending SARS-CoV-2 (PCR) Pending Influenza Type A (PCR) Pending Influenza Type B (PCR) Pending RSV (PCR) Pending 10/27/24 10/27/24 Range/Units 21:07 19:30 WBC 6.99 (4.4-10.8) 10^3/uL RBC 3.92 L (4.36-5.78) 10^6/uL Hgb 12.3 L (13.5-17.5) g/dL Hct 37.3 L (40.0-50.0) % MCV 95 (80-95) fL MCH 31.4 (27.0-33.0) pg MCHC 33.0 (32.0-36.0) % RDW 13.3 (11.8-14.1) % Plt Count 244 (130-400) 10^3/uL MPV 12.0 H (8.0-11.0) fL Immature Gran % 0.1 % Neutrophils % 52.5 % Lymphocytes % 35.3 % Monocytes % 6.3 % Eosinophils % 3.9 % Basophils % 1.9 % Nucleated RBC % 0.0 (0.0-0.3) % Absolute Neutrophils 3.67 (1.2-6.7) 10^3/uL Absolute Lymphocytes 2.47 (1.2-3.4) 10^3/uL Absolute Monocytes 0.44 (0.1-0.8) 10^3/uL Absolute Eosinophils 0.27 (0.0-0.7) 10^3/uL Absolute Basophils 0.13 (0.0-0.2) 10^3/uL PT 10.5 (9.1-11.1) sec INR 1.0 (0.9-1.1) APTT 25.9 (20.6-30.2) sec D-Dimer (<500) ng/mlFEU VBG Lactate (<or=2.0) mmol/L Sodium 139 (136-145) mmol/L Potassium 4.0 (3.5-5.1) mmol/L Chloride 104 (98-107) mmol/L Carbon Dioxide 28.0 (21.0-32.0) mmol/L Anion Gap 7.0 (3-11) mmol/L BUN 21 H (7-18) mg/dL Creatinine 0.9 (0.70-1.30) mg/dL Est GFR (CKD-EPI 2020) 100.86 (mL/min/1.73m2) Glucose 250 H (74-106) mg/dL Calcium 8.5 (8.5-10.1) mg/dL Magnesium 2.1 (1.8-2.4) mg/dL Total Bilirubin 0.3 (0.2-1.0) mg/dL AST 10 L (15-37) U/L ALT 24 (16-63) U/L Alkaline Phosphatase 58 (46-116) U/L Troponin I 9 9 (<or=76) ng/L NT-Pro-B Natriuret Pep 135 (<300) pg/mL Total Protein 6.5 (6.4-8.2) g/dL Albumin 3.5 (3.4-5.0) g/dL Lipase 37 (<78) U/L Urine Opiates Screen (Negative) Urine Methadone Screen (Negative) Ur Barbiturates Screen (Negative) Ur Tricyclics Screen (Negative) Ur Amphetamines Screen (Negative) U Benzodiazepines Scrn (Negative) Urine Cocaine Screen (Negative) Ur THC Screen (Negative) COVID-19 Source SARS-CoV-2 (PCR) Influenza Type A (PCR) Influenza Type B (PCR) RSV (PCR) [id number] Documentation Fingerstick Glucose Start: 10/27/24 20:35 Freq: Status: Active Protocol: Activity Type Activity Date Activity User E-sign Co-sign Detail Recorded Client Recorded Date Recorded By Document 10/27/24 20:34 BKG DAEMON(3) [id number] 10/27/24 20:35 BKG DAEMON(4) Intake and Output - 24 Hour Total 10/27/24 19:02 thru 10/28/24 00:39 Intake Total 1000 Balance 1000 Weight 78.9 kg Intake: IV 1000 Falls Risk Assessment History of Falls No History 10/27/24 19:31 Contributing Factors No Factors 10/27/24 19:31 Ambulatory Aids Independent 10/27/24 19:31 Tubes/Lines None 10/27/24 19:31 Gait Evaluation No gait disturbance 10/27/24 19:31 Cognition No cognitive impairment 10/27/24 19:31 Fall Total Score 0 10/27/24 19:31 Level of Risk Standard/Low Risk 10/27/24 19:31 Problems (Last Reviewed 10/28/24 @ 02:16 by Kwaku Morton) Degenerative disc disease, cervical (Chronic) Depression (Chronic) Hyperlipidemia (Chronic) Pulmonary embolism (Chronic) CHF (congestive heart failure) (Chronic) Alcoholism in recovery (Acute) Type 2 diabetes mellitus (Acute) Angina pectoris, unstable (Acute) CAD (coronary artery disease), [place] coronary artery (Chronic) Hypotension (Chronic) S/P CABG (coronary artery bypass graft) (Chronic) v v v v v v v v v Sending and/or Receiving Nurses: Please use comment section below to note any information pertinent to the patient hand-off not included above. Information / Comments: Housed at correctional facility. Complained of sub-sternal chest pain radiating down to right arm. Brought in by EMS. Cardiac workup reassuring, and likely anginal pain. Does have extensive cardiac history, and had a CABG in 2021. Recent LHC showed patent grafts. initial and one hour trop stable. Plan to be inpatient for initiation of Imdur. Patient received 50 mcg of fentanyl, and 1L IVF in the ER. Is a/o x3, and being cooperative. Corrections staff will remain at bedside. Report received from: James Valera RN
--- NOTE | 2024-10-28 03:58 | ED.PROG_ITS ---
Date of service: 10/28/24 Time of Service: 04:00 Medical Decision Making Patient was signed out to me pending the patient's transitioning to [facility]. Dr. Donis accepted the patient for admission. He did request that I perform bedside echo, bedside echo was performed shows an ejection fraction around 40%, with mild dysfunction. Inferior vena cava was measured at around 2 cm, and collapses about 25% with inspiration. Suggesting mild room for continued gentle fluid resuscitation. While the patient was still down here transitioning up stairs, the patient's blood pressure improved to 102 systolic. Patient remained stable otherwise with no significant tachycardia. He demonstrated continued good mentation. I have extensively reviewed the treatment plan with the patient. I have addressed all patient concerns at this time. I have also discussed the plan with the admitting physician and they agree with the current assessment and plan and have agreed to assume responsibility for the patient. All parties demonstrate verbal understanding and agreement with our assessment and plan at this time. The documentation in this chart was dictated using [employer] dictation software. Please excuse any dictation errors. Exam type: diagnostic Indication for exam: hypotension Views obtained and pictures saved: subxiphoid view of the IVC as it enters the right atrium on inspiration and exhalation. Diameter was measured approximately 2 cm from the atrial caval junction. And collapses about 25% with inspiration Findings and interpretations: all views were adequate. The IVC measur 2cm and collapses 25% indicating the CVP is estimated AT 11-15 mmhg. The patient tolerated the procedure well and there were no complications. Critical Care Time Critical Care Time Critical Care Time: Yes Total Critical Care Time: 30 Attestation: Upon my evaluation, this patient had a high probability of imminent or life- threatening deterioration, which required my direct attention, intervention, and personal management. I have personally provided 30 minutes of critical care time exclusive of time spent on separately billable procedures. Time includes review of laboratory data, radiology results, discussion with consultants, and monitoring for potential decompensation. Interventions were performed as documented. Discharge Plan Disposition Patient Disposition: Admit to [facility] Condition: Serious Discharge Details Clinical Impression: Chest pain, S/P CABG (coronary artery bypass graft), Hypotension Admit Date/Time: 10/28/24 02:54 Admit Provider: Kwaku Morton Attending Provider: Kwaku Morton Primary Care Provider: Sadia Griffin ED Provider: Phil Calderon Home Meds and New Rx's Prescriptions: No Action atorvastatin 40 mg tablet 40 mg PO QHS metoprolol succinate 50 mg tablet extended release 24 hr 50 mg PO QAM aspirin 81 mg tablet,delayed release (DR/EC) 81 mg PO QAM metformin 1,000 mg tablet 1,000 mg PO BIDWMEAL nitroglycerin 0.4 mg tablet, sublingual 0.4 mg sublingual Q5M PRN (Reason: chest pain) pramipexole 0.25 mg tablet See Rx Instructions PO QHS Patient Comments: took 2 tabs 10/17/24 Rx Instructions: 1-2 tabs orally every day at bedtime omeprazole 20 mg capsule,delayed release(DR/EC) 20 mg PO QAM fludrocortisone 0.1 mg tablet 0.1 mg PO QAM disulfiram 500 mg tablet 500 mg PO QAM lamotrigine 100 mg tablet 100 mg PO QAM loratadine 10 mg tablet 10 mg PO QAM duloxetine 30 mg capsule,delayed release(DR/EC) 30 mg PO QAM pregabalin 100 mg capsule 100 mg PO TID quetiapine 50 mg tablet 50 mg PO DAILY PRN (Reason: anxiety or agitation) quetiapine 50 mg tablet extended release 24 hr 50 mg PO QHS Eliquis 5 mg tablet 5 mg PO BID Jardiance 25 mg tablet 25 mg PO QAM POCUS Exam (ED) Limited Cardiac Exam DATE OF EXAM: 10/28/24 TIME OF EXAM: 04:04 PROVIDER THAT PERFORMED THE STUDY: Phil Calderon IS THIS A REPEAT EXAM DURING THIS ENCOUNTER: no REASON FOR EXAM: Hypotension VISUALIZED STRUCTURES: Left atrium, Left ventricle, Right ventricle, Mitral valve and Interventricular septum VIEW OBTAINED: Parasternal long-axis PERTINENT FINDINGS/IMPRESSION: LV dysfunction :mild Exam complete
[2024-10-28] MEDS: Isosorbide Mononitrate 30 MG TABCR PO ×2 (04:12→10:13)
[2024-10-28] MEDS: Normal Saline 1,000 ML 125 ML IV (04:17)
[2024-10-28] MEDS: Ketorolac 30 MG/ML VIAL IVP (05:26)
[2024-10-28 07:10] LABS: HCT 34.6 % (40.0-50.0); HGB 11.2 g/dL (13.5-17.5); MCH 31.4 pg (27.0-33.0); MCHC 32.4 % (32.0-36.0); MCV 97 fL (80-95); MPV 12.2 fL (8.0-11.0); Platelet Count 200 10^3/uL (130-400); RBC 3.57 10^6/uL (4.36-5.78); RDW 13.2 % (11.8-14.1); RDW-SD 47.3 fL; WBC 7.27 10^3/uL (4.4-10.8)
[2024-10-28 07:29] LABS: ALT 22 U/L (16-63); AST 10 U/L (15-37); Albumin 3.2 g/dL (3.4-5.0); Alkaline Phosphatase 54 U/L (46-116); Anion Gap 8.3 mmol/L (3-11); BUN 22 mg/dL (7-18); Bilirubin, Total 0.3 mg/dL (0.2-1.0); CO2 25.7 mmol/L (21.0-32.0); Calcium 7.9 mg/dL (8.5-10.1); Chloride 108 mmol/L (98-107); Estimated GFR 108.82 (mL/min/1.73m2); Glucose 182 mg/dL (74-106); Magnesium 2.1 mg/dL (1.8-2.4); Potassium 3.6 mmol/L (3.5-5.1); Sodium 142 mmol/L (136-145); Total Protein 5.7 g/dL (6.4-8.2)
[2024-10-28 07:37] LABS: TSH 1.58 uIU/mL (0.36-3.74); Troponin I 11 ng/L (<or=76)
[2024-10-28] MEDS: Loratidine 10 MG TAB PO (07:48)
[2024-10-28] MEDS: Omeprazole 20 MG CAPCR PO (07:48)
[2024-10-28] MEDS: Aspirin E.C. 81 MG TABEC PO (07:48)
[2024-10-28] MEDS: DULoxetine 30 MG CAP PO (07:48)
[2024-10-28] MEDS: Pregabalin 100 MG CAP PO ×3 (07:48→20:32)
[2024-10-28] MEDS: Empaglifozin 25 MG TAB PO (07:48)
[2024-10-28] MEDS: lamoTRIgine 100 MG TAB PO (07:48)
[2024-10-28] MEDS: Apixaban 5 MG TAB PO ×2 (07:48→20:33)
[2024-10-28] MEDS: Metoprolol 25 MG TAB PO ×3 (07:49→22:49)
[2024-10-28] MEDS: Fludrocortisone 0.1 MG TAB PO (08:02)
[2024-10-28] MEDS: Insulin Aspart 300 UNITS/3 ML PEN SC ×4 (08:03→22:50)
--- NOTE | 2024-10-28 08:22 | PDOC.CMIN ---
Date of service: 10/28/24 Time of Service: 08:22 Care Management Initial Assmt Initial Assessment Reason for Hospitalization: Angina pectoris, unstable Functional Status/Living Situation Patient Presentation: Mikey is admitted for angina and requires close monitoring and medical management. He is an inmate at the [facility] and is accompanied a DOC office. CM will continue to follow. Town of Residence: [facility] c/o Department of [facility] Instrumental Activities of Daily Living (ADLs): Independent Medications Medication Management: No Issues/Barriers identified Advance Directives Advance Directives: Do you have an Advance Directive: N 07/12/24, 10:17 AD On File at [facility]: N 07/12/24, 08:23 Date Asked 10/28/24 Today, 04:02 AD Date Reviewed COLST On File at [facility] COLST Date Scanned Code Status Resuscitation Status Full Code Insurance Coverage/Financial Issues Insurance: Department of corrections Care Team Visit Care Team Role Provider Type Sadia Griffin Primary Care Provider NON-[facility] STAFF PHYSICIAN Phil Calderon, Emergency Provider [facility] STAFF PHYSICIAN Kwaku Morton Admit Provider NON-[facility] STAFF PHYSICIAN Attending Provider Discharge Anticipated Barriers to Discharge: None Identified Patient/Family Education Needs: Review discharge instructions, discuss Ask Me Three Transportation: Facility Transport Plan: Return to [facility] once medically cleared for discharge. Follow up with facility/community providers and discharge plan of care as directed. DOC will provide transportation. Social Determinants of Health Screening Social Determinants of health last assessed in clinic: 10/28/24 Will the Patient Participate in the Screening?: Declined to provide Do you worry about having a steady place to live?: choose not to answer Problems where you live: no known problems In the past 12 months, have you had to go without electric, gas, oil or water in your home?: choose not to answer Has lack of transportation kept you from medical appointments or from doing things needed for daily living?: choose not to answer Has anyone in your life made you feel unsafe or unsupported?: choose not to answer How hard is it for you to pay for the very basics like food, housing, medical care, and heating? Would you say it is:: Not hard at all Do you want help finding or keeping work or a job?: I do not need or want help If for any reason you need help with day-to-day activities such as bathing, preparing meals, shopping, managing finances, etc., do you get the help you need?: I need a lot more help How often do you feel lonely or isolated from those around you?: Never Do you speak a language other than Latvian at home?: No Does the patient want assistance with any of the above?: No Health Related Social Needs Health related social needs: material hardship(utilities) (Z59.12) and problems with daily activities (Z73.9) Health related social needs details: . PFSH All Active Problems (Updated 10/28/24 @ 02:58 by Kwaku Morton) Degenerative disc disease, cervical (Chronic) Depression (Chronic) Hyperlipidemia (Chronic) Pulmonary embolism (Chronic) CHF (congestive heart failure) (Chronic) Alcoholism in recovery (Chronic) Type 2 diabetes mellitus (Acute) Angina pectoris, unstable (Acute) CAD (coronary artery disease), [place] coronary artery (Chronic) Hypotension (Chronic) S/P CABG (coronary artery bypass graft) (Chronic) Chest pain (Acute) Social History Smoking/Tobacco Use Status: Never Smoking risk assessment performed?: Yes Alcohol Intake: current Alcohol Intake frequency: holidays/special occasions only Substance use type: does not use Housing: other
[2024-10-28] MEDS: MORPHine 4 MG/ML SYR IVP ×6 (09:01→22:49)
[2024-10-28] MEDS: Normal Saline Flush 10 ML SYR IVP ×4 (10:14→22:50)
[2024-10-28 10:18] LABS: COVID-19 PCR Negative (Negative); RSV PCR Negative (Negative)
[2024-10-28] MEDS: Ranolazine 500 MG TABCR PO ×2 (11:03→22:49)
--- NOTE | 2024-10-28 12:45 | RT.EKG_ITS ---
APPROVED REPORT Exam: Resting ECG Reason for Exam: chest pain Patient Location: I HR:72 bpm ECG Measurements Heart Rate 72 AXIS [place] 165 P 55 QRSd 110 QRS 60 QT 373 T -47 QTc 409 Conclusion Sinus rhythm...normal P axis, V-rate 50- 99 Multiple ventricular premature complexes...V complexes w/ short R-R intervls Probable left atrial enlargement...P >50mS, <-0.10mV V1 Inferior infarct, age indeterminate...Q>35mS, T neg, II III aVF
[2024-10-28] MEDS: nitroGLYcerin 0.4 MG TAB SL ×2 (12:55→13:01)
[2024-10-28 13:24] LABS: Troponin I 12 ng/L (<or=76)
--- NOTE | 2024-10-28 14:46 | CE_ITS ---
Date of service: 10/28/24 Time of Service: 14:46 Event Note: Mikey is getting ongoing chest pain at rest. Comes and goes. Not releived by NTG SL. Mid to left sternal sharp pain. Worse with breath. He doesn't feel SOB. Exam with CV RRR, no m/g/r. Lungs clear with normal effort. No elevation JVP or peripheral edeam. Pain not reproducible with palpation. repeat EKG done, no change, and repeat troponin still negative. Pain releived by morphine. In fact patient described improvement when morphine being given prior to administration. Reveiwing history, he has a lot of fear about cardiac disease with initial presentation being missed and attributed to MSK pain. That said, he has had a clear cardiac cath at [facility] since this pain started, so it appears non- cardiac. Also noted he was on daily hydrocodone/apap 7.5mg/325 BID prescribed per [facility] before being encarcerated. Last Rx was in July. pregabalin is new to try to treat neck pain. Try adding Ranolazine for angina, but this pain is very likely non-cardiac. Time Spent with Patient Time spent in critical care(minutes): 40 Time Spent Included: Coordination of care, Chart review, Documenting critically ill care, Time at immediate bedside and Discussing critically ill care with other medical staff
[2024-10-28] MEDS: metFORMIN 500 MG TAB 1000 MG PO (17:03)
[2024-10-28] MEDS: Atorvastatin 40 MG TAB PO (20:33)
[2024-10-28] MEDS: Pramipexole 0.25 MG TAB 0.5 MG PO (20:33)
[2024-10-28] MEDS: Acetaminophen 325 MG TAB 650 MG PO (20:33)
[2024-10-29] VITALS (34 sets, daily range): BP systolic 76–108; BP diastolic 51–73; PULSE 54–83; RESP 11–21; TEMP 36.5–37.5; O2SAT 87–98
[2024-10-29] MEDS: MORPHine 4 MG/ML SYR IVP ×8 (01:45→21:23)
[2024-10-29] MEDS: Normal Saline Flush 10 ML SYR IVP ×6 (01:46→19:46)
[2024-10-29 06:41] LABS: HCT 36.9 % (40.0-50.0); HGB 12.2 g/dL (13.5-17.5); MCH 32.1 pg (27.0-33.0); MCHC 33.1 % (32.0-36.0); MCV 97 fL (80-95); MPV 12.2 fL (8.0-11.0); Platelet Count 207 10^3/uL (130-400); RBC 3.80 10^6/uL (4.36-5.78); RDW 13.1 % (11.8-14.1); RDW-SD 46.5 fL; WBC 6.69 10^3/uL (4.4-10.8)
[2024-10-29 07:01] LABS: ALT 20 U/L (16-63); AST 10 U/L (15-37); Albumin 3.2 g/dL (3.4-5.0); Alkaline Phosphatase 51 U/L (46-116); Anion Gap 7.9 mmol/L (3-11); BUN 17 mg/dL (7-18); Bilirubin, Total 0.2 mg/dL (0.2-1.0); CO2 27.1 mmol/L (21.0-32.0); Calcium 8.1 mg/dL (8.5-10.1); Chloride 109 mmol/L (98-107); Estimated GFR 104.51 (mL/min/1.73m2); Glucose 144 mg/dL (74-106); Magnesium 2.2 mg/dL (1.8-2.4); Potassium 4.0 mmol/L (3.5-5.1); Sodium 144 mmol/L (136-145); Total Protein 5.9 g/dL (6.4-8.2)
[2024-10-29] MEDS: Aspirin E.C. 81 MG TABEC PO (07:54)
[2024-10-29] MEDS: metFORMIN 500 MG TAB 1000 MG PO ×2 (07:54→17:01)
[2024-10-29] MEDS: Omeprazole 20 MG CAPCR PO (07:55)
[2024-10-29] MEDS: Empaglifozin 25 MG TAB PO (07:55)
[2024-10-29] MEDS: Pregabalin 100 MG CAP PO ×3 (07:55→19:45)
[2024-10-29] MEDS: lamoTRIgine 100 MG TAB PO (07:55)
[2024-10-29] MEDS: Ranolazine 500 MG TABCR PO ×2 (07:55→19:45)
[2024-10-29] MEDS: Fludrocortisone 0.1 MG TAB PO (07:55)
[2024-10-29] MEDS: Loratidine 10 MG TAB PO (07:55)
[2024-10-29] MEDS: Apixaban 5 MG TAB PO ×2 (07:55→19:45)
[2024-10-29] MEDS: DULoxetine 30 MG CAP PO (07:55)
[2024-10-29] MEDS: Insulin Aspart 300 UNITS/3 ML PEN SC ×3 (11:55→21:35)
--- NOTE | 2024-10-29 13:06 | W.PM.PROGNOT ---
Date of Service Date of service: 10/29/24 Time of Service: 13:07 Assessment and Plan Assessment and plan (1) Angina pectoris, unstable: Start date: 10/28/24 Status: Acute Assessment and plan: Admitted with worsening of his persistent intermittent angina pectoris-type symptoms over the last 6 weeks. Due to same pain, had repeat cardiac catheterization in September at [facility] which revealed nonocclusive disease. [facility] called on admitted, recommended trial on imdur, but low BP limiting, and no clear initial effect. Started on ranolazine as well at 500mg BID, no clear effect so far. Got one dose of ketoralac IV in the ED. Still had pain. Refuses ongoing NSAIDs. Morphine dose work to improve symptoms. He was previously on chronic opioids for his neck before going to shelter. At this point it appears this is most likely non-cardiac. I called again and talked to Blair Vidal from [facility] cardiology. Try GI cocktail and PPI for GI cause. Get CRP and if positive try empiric colchicine for pericarditis (He did have CT chest 10/18 with no PE, no pericardiac effusion). Plan to check in again with [facility] before discharge. (2) CAD (coronary artery disease), [place] coronary artery: Status: Chronic Assessment and plan: S/p CABG. Continue above treatment maximizing medical therapy. (3) Type 2 diabetes mellitus: Status: Acute Assessment and plan: Not on insulin. Can take Jardiance and metformin and monitor with glucometer measurements before meals and bedtime with moderate sliding scale insulin coverage. (4) Hypotension: Status: Chronic Assessment and plan: This is chronic, worse with nitrates, morphine, metoprolol which are all recently added. Follow, hold imdur prn. (5) CHF (congestive heart failure): Status: Chronic Assessment and plan: He has chronic HFmrEF. He is not fluid overloaded clinically now. When was given to have had previous MIs prior to his CABG, his left ventricular ejection fraction was in the 20% range with patient recovering after his CABG in 2021 to about 40%. POCUS exam in the ED did reveal left ventricular ejection fraction to be around 30 to 40%. Repeat full echocardiogram would be more appropriate for assessment of his left ventricular function but had not been done recently at [facility] this will be done with follow-up at that institution. He will continue Jardiance but is not on diuretics. Presently looks slightly dry and will have a small fluid bolus. (6) Pulmonary embolism: Status: Chronic Assessment and plan: At the patient's CABG, on apixaban. Had discussed stopping with cardiology but will continue for now. (7) Degenerative disc disease, cervical: Status: Chronic Assessment and plan: Patient never did have surgical procedure and does have chronic pain from this problem. He is on medical therapy with pregabalin which will be continued. He is not on opioids now, but was previously on hydrocodone/APAP 7.5mg/325mg BID chornically before being incarcerated. (8) Alcoholism in recovery: Status: Chronic Assessment and plan: He was not on disulfiram, removed from list. He does not have an opportunity to have alcohol available since incarcerated. (9) Depression: Status: Chronic Assessment and plan: Patient has diagnosis of depression in the past and then recently was diagnosed with bipolar mood disorder. Continue outpatient medical therapy. Subjective Subjective Patient reports: no new complaints, still having pain, tolerating a regular diet and voiding w/o difficulty; denies vomiting or fever Interval history since last seen: Events: Held imdur and metoprolol this morning with low BP See event note re: chest pain 10/28, no EKG changes, negative trops He is still having intermittent chest pain, a/w SOB, dizziness at times. Worse with deep breath. He has had this pain for several weeks, but most severe was when he came in. Worse with exertion, has to move slowly Exam Narrative Exam Narrative: GEN: A&O, NAD CV: RRR, no m/g/r. no elevation JVP. Chest wall not tender to palpation Lungs: CTAB, nl effort ABD: soft, NT/ND Ext: no c/c/e. no pain with ROM arms. Objective Last Vital Signs Temp 36.5 C 10/29/24 08:09 Pulse 63 10/29/24 10:01 Resp 12 10/29/24 10:01 BP 90/61 L 10/29/24 10:01 Pulse Ox 95 10/29/24 10:01 Laboratory Results - last 24 hr 10/28/24 10/29/24 12:58 06:05 WBC 6.69 RBC 3.80 L Hgb 12.2 L Hct 36.9 L MCV 97 H MCH 32.1 MCHC 33.1 RDW 13.1 Plt Count 207 MPV 12.2 H Sodium 144 Potassium 4.0 Chloride 109 H Carbon Dioxide 27.1 Anion Gap 7.9 BUN 17 Creatinine 0.8 Est GFR (CKD-EPI 2020) 104.51 Glucose 144 H Calcium 8.1 L Magnesium 2.2 Total Bilirubin 0.2 AST 10 L ALT 20 Alkaline Phosphatase 51 Troponin I 12 Total Protein 5.9 L Albumin 3.2 L Time Spent with Patient Time Spent with Patient: >50 minutes Time was spent: preparing to see the patient(eg.review tests), obtaining and/or reviewing separately otained hiistory, ordering medications,tests, procedures, referring, communicating with other health medicare nurse, indepentently interpreting results, counseling the patient and care coordination
[2024-10-29 13:39] LABS: Troponin I 11 ng/L (<or=76)
[2024-10-29 13:40] LABS: C-Reactive Protein < 0.50 mg/dL (<or=0.5)
[2024-10-29] MEDS: Pantoprazole 40 MG VIAL IVP (13:54)
[2024-10-29] MEDS: Normal Saline 10 ML VIAL IJ (13:54)
[2024-10-29] MEDS: Magic Mouthwash 119 ML BTL 10 ML PO (14:00)
[2024-10-29] MEDS: Atorvastatin 40 MG TAB PO (19:44)
[2024-10-29] MEDS: Pantoprazole 40 MG TABCR PO (19:45)
[2024-10-29] MEDS: Pramipexole 0.25 MG TAB 0.5 MG PO (19:45)
[2024-10-29] MEDS: Acetaminophen 325 MG TAB 650 MG PO (19:46)
[2024-10-29] MEDS: Mylanta Suspension 30 ML CUP PO (21:23)
[2024-10-30] VITALS (53 sets, daily range): BP systolic 74–111; BP diastolic 48–78; PULSE 42–97; RESP 11–28; TEMP 36.9–37.4; O2SAT 89–95
[2024-10-30] MEDS: Metoprolol 25 MG TAB PO ×2 (00:09→16:00)
[2024-10-30] MEDS: MORPHine 4 MG/ML SYR IVP ×6 (00:22→12:04)
[2024-10-30] MEDS: Normal Saline Flush 10 ML SYR IVP ×6 (03:36→19:51)
[2024-10-30] MEDS: Mylanta Suspension 30 ML CUP PO (05:48)
[2024-10-30] MEDS: Pantoprazole 40 MG TABCR PO ×2 (07:46→19:49)
[2024-10-30] MEDS: Apixaban 5 MG TAB PO ×2 (07:46→19:49)
[2024-10-30] MEDS: lamoTRIgine 100 MG TAB PO (07:46)
[2024-10-30] MEDS: Pregabalin 100 MG CAP PO ×3 (07:46→19:50)
[2024-10-30] MEDS: Aspirin E.C. 81 MG TABEC PO (07:46)
[2024-10-30] MEDS: Empaglifozin 25 MG TAB PO (07:46)
[2024-10-30] MEDS: Loratidine 10 MG TAB PO (07:46)
[2024-10-30] MEDS: DULoxetine 30 MG CAP PO (07:46)
[2024-10-30] MEDS: Fludrocortisone 0.1 MG TAB PO (07:46)
[2024-10-30] MEDS: metFORMIN 500 MG TAB 1000 MG PO ×2 (07:47→16:47)
[2024-10-30] MEDS: Ranolazine 500 MG TABCR PO (08:32)
[2024-10-30] MEDS: Polyethylene Glycol 3350 17 GM PACKET PO (08:44)
[2024-10-30] MEDS: Docusate Sodium 100 MG CAP PO ×2 (08:44→15:43)
[2024-10-30] MEDS: Acetaminophen 325 MG TAB 650 MG PO ×2 (09:53→15:43)
--- NOTE | 2024-10-30 10:48 | PDOC.CMPRO ---
Date of service: 10/30/24 Time of Service: 10:48 Care Management Progress Note Progress Note Text Progress Note Text: Mikey remains in the ICU and continues to require close monitoring. He is an inmate at the [facility] and is accompanied a DOC officer. Per RN, he continues to have chest pain; He is scoring this pain at a 7-9/10. CM will continue to follow. Discharge Potential Discharge Needs: Other (Facility provider f/u) Anticipated Barriers to Discharge: None Identified Patient/Family Education Needs: Review discharge instructions, discuss Ask Me Three Transportation: Facility Transport Plan: Return to [facility] once medically cleared for discharge. Follow up with facility/community providers and discharge plan of care as directed. DOC will provide transportation. Social Determinants of Health Screening Social Determinants of health last assessed in clinic: 10/30/24 Will the Patient Participate in the Screening?: Declined to provide Do you worry about having a steady place to live?: choose not to answer Problems where you live: no known problems In the past 12 months, have you had to go without electric, gas, oil or water in your home?: choose not to answer 1. Within the past 12 months, we worried whether our food would run out before we got money to buy more.: Never true 2. Within the past 12 months, the food we bought just didn't last and we didn't have money to get more.: Never true Has lack of transportation kept you from medical appointments or from doing things needed for daily living?: choose not to answer Has anyone in your life made you feel unsafe or unsupported?: choose not to answer How hard is it for you to pay for the very basics like food, housing, medical care, and heating? Would you say it is:: Not hard at all Do you want help finding or keeping work or a job?: I do not need or want help If for any reason you need help with day-to-day activities such as bathing, preparing meals, shopping, managing finances, etc., do you get the help you need?: I need a lot more help How often do you feel lonely or isolated from those around you?: Never Do you speak a language other than Tajik at home?: No Does the patient want assistance with any of the above?: No Health Related Social Needs Health related social needs: material hardship(utilities) (Z59.12) and problems with daily activities (Z73.9) Health related social needs details: .
[2024-10-30] MEDS: Insulin Aspart 300 UNITS/3 ML PEN SC ×3 (12:04→22:16)
[2024-10-30] MEDS: Isosorbide Mononitrate 30 MG TABCR PO (12:04)
--- NOTE | 2024-10-30 13:30 | RT.EKG_ITS ---
APPROVED REPORT Exam: Resting ECG Reason for Exam: arrhythmia Patient Location: I HR:66 bpm ECG Measurements Heart Rate 66 AXIS [place] 164 P 56 QRSd 112 QRS 56 QT 389 T -48 QTc 408 Conclusion Sinus rhythm...normal P axis, V-rate 50- 99 Inferior infarct, age indeterminate...Q>35mS, T neg, II III aVF
[2024-10-30] MEDS: Magic Mouthwash 119 ML BTL 10 ML PO (13:43)
[2024-10-30] MEDS: nitroGLYcerin 0.4 MG TAB SL ×4 (15:36→16:28)
--- NOTE | 2024-10-30 15:55 | PGE_ITS ---
Date of Service Date of service: 10/30/24 Time of Service: 09:00 Assessment and Plan Assessment and plan (1) Angina pectoris, unstable: Status: Acute Assessment and plan: Presumptive diagnosis, however workup here and at [facility] negative for cardiac pathology 6 weeks of persistent intermittent chest pain with multiple ED visits / admissions [facility] September repeat cardiac cath showing no occlusive disease [facility] consulted on this admission, recommended starting nitrates, however low BPs Ranolazine started, now discontinued No improvement of symptoms with nitroglycerin No improvement with GI cocktail Patient declines NSAIDs CRP negative, low suspicion of pericarditis at this time [facility] now advising pain is likely non-cardiac Patient continues to report pain 8-9/10 and is on PRN morphine Reduced dose of morphine without reducing frequency, was 4 mg q2h, now 1 mg q2h Will order CTA thorax/abdomen to evaluate for aortic dissection, PE, PUD (2) S/P CABG (coronary artery bypass graft): Status: Chronic Assessment and plan: 2021 procedure as well as September 2024 procedure at [facility], no lesions noted (3) CAD (coronary artery disease), [place] coronary artery: Status: Chronic Assessment and plan: Chronic, continue home regimen (4) Type 2 diabetes mellitus: Status: Acute Assessment and plan: Chronic, continue home empagliflozin, metformin Continue SSI (5) Hypotension: Status: Chronic Assessment and plan: Chronic, worse with nitrates, opioids, beta bette Holding isosorbide mononitrate (6) Heart failure with mildly reduced ejection fraction (HFmrEF, 41-49%): Status: Acute Assessment and plan: EF improved from 20's to 40's after 2021 CABG Continue GDMT (7) History of pulmonary embolism: Status: Acute Assessment and plan: PE at the time of recent CABG, continuing on apixaban (8) Degenerative disc disease, cervical: Status: Chronic Assessment and plan: Chronic, unresolved Previously OUD prior to incarceration Now on pregabalin which patient reports is not helpful (9) Alcoholism in recovery: Status: Chronic Assessment and plan: No EtOH intake since incarceration (10) Major depression, recurrent, chronic: Status: Acute Assessment and plan: Continue home regimen Subjective Subjective Interval history since last seen: Mr. Mckinnon continues to report 8-10/10 chest pain. No relief with nitroglycerin nor with GI cocktail. Relief with morphine. He is getting q2h morphine except while asleep. No elevated HR nor elevated BPs during pain reports. Exam Narrative Exam Narrative: General: This is a pleasant male inmate in no distress HEENT: Normocephalic, atraumatic CV: RRR Resp: CTAB GI: NTND +NBS MSK: voluntary motion x4 Neuro: Awake, alert, no focal deficits Objective Last Vital Signs Temp 37.1 C 10/30/24 12:37 Pulse 78 10/30/24 15:40 Resp 20 10/30/24 15:40 BP 95/68 L 10/30/24 15:47 Pulse Ox 91 L 10/30/24 15:40 Time Spent with Patient Time Spent with Patient: 35-49 minutes Time was spent: preparing to see the patient(eg.review tests), obtaining and/or reviewing separately otained hiistory, ordering medications,tests, procedures, referring, communicating with other health hiv/aids care nurse, indepentently interpreting results, counseling the patient and care coordination
[2024-10-30] MEDS: MORPHine 2 MG/ML SYR 1 MG IVP ×2 (16:46→19:49)
[2024-10-30] MEDS: Normal Saline - Diluent 50 ML VIAL IJ (18:15)
[2024-10-30] MEDS: Omnipaque 350 MG/ML 100 ML BTL IJ (18:19)
--- NOTE | 2024-10-30 18:21 | DI.CT_ITS ---
Exam(s) CT THORAX ABD/PEL CTA EXAM: CT THORAX ABD/PEL CTA CLINICAL HISTORY: query aortic dissection, PE, perf GI ulcer. TECHNIQUE: Imaging Protocol: Axial CT angiography was performed with multi- slice acquisition and multi-planar and/or 3D reconstructions. Lung Computer Aided Detection (CAD) was utilized. CONTRAST MATERIAL: Intravenous: Omnipaque 350 contrast volume:100 mL Oral: No COMPARISON: CT CT CHEST PE CTA from 10/18/2024 CR,XR XR PORTABLE CHEST AP from 10/22/2024 FINDINGS: CHEST: Tracheobronchial tree: Patent where visualized. There is no evidence of bronchiectasis. Pulmonary parenchyma: There are infiltrates seen in the lower lobes bilaterally. The infiltrates are of high density showing enhancement and likely reflect atelectasis which can be secondary to mucous plugging in the inpatient setting. No suspicious pulmonary nodules are seen. Pulmonary Arteries: No evidence of filling defect to suggest pulmonary emboli. Mediastinum and Anne: No dominant adenopathy or fluid collection. The esophagus is unremarkable. Visualized thyroid: Unremarkable. Pleura: No effusion or pneumothorax. Heart: The heart is not dilated. Coronary artery calcifications and/or stents are present. No pericardial effusion. Aorta: Thoracic aorta non-dilated. There is no evidence of dissection. Atherosclerotic calcification is present. Soft Tissues: Unremarkable. Bones: Within normal limits for the patient's age.Sternal wires are in place. ABDOMEN AND PELVIS: Abdomen: Celiac axis/mesenteric arteries: No evidence of occlusion or significant stenosis. Renal Arteries: No evidence of occlusion or significant stenosis. Mild atherosclerotic calcification is seen at the origins of both renal arteries but there is no significant stenosis. Aorta: No evidence of occlusion or significant stenosis. No aneurysm or dissection. Atherosclerotic calcification is present. Pelvis: Iliac Arteries: No evidence of occlusion or significant stenosis. Atherosclerotic calcification is seen but no significant stenosis is present. Common Femoral Arteries: No evidence of occlusion or significant stenosis. Atherosclerotic calcification is seen but no significant stenosis is seen. ABDOMEN: Liver: Normal density. No measurable mass. Portal, superior mesenteric and splenic veins: Unremarkable. Gallbladder and Biliary Tract: No radiodense calculus or dilation. Pancreas: Normal density, no abnormal calcifications or inflammatory process. Spleen: Normal. Adrenals: No masses seen. Kidneys: Normal size, contour and axis. No radiodense stones or obstructive uropathy. No masses seen. There is a calcification in the right renal hilum which appears to be vascular in nature. Bowel: There is stool throughout the colon consistent with constipation. There is no evidence of bowel obstruction. There is mild bowel wall thickening seen in small bowel loops in the left upper quadrant. This may represent an enteritis. There is no evidence of pneumatosis. Appendix is unremarkable. Peritoneal Cavity: No ascites, collection or mesenteric inflammatory response. No free air. Lymph Nodes: Within normal limits. Bones: Within normal limits for the patient's age. Soft Tissues: There is a small fat containing left inguinal hernia. PELVIS: Bladder: Symmetric distention, no gross wall thickening. Reproductive Organs: Unremarkable as visualized. Lymph Nodes: Within normal limits. Bones: Within normal limits for the patient's age. IMPRESSION: 1. Mild bowel wall thickening is seen in the small bowel in the left upper quadrant which may represent an enteritis. Please correlate clinically. 2. There is no evidence of pneumoperitoneum. 3. Constipation. 4. There is no evidence of a thoracic aortic aneurysm, pulmonary embolism or dissection. 5. No evidence of abdominal aortic aneurysm or dissection. 6. Bilateral basilar atelectasis which may be due to mucous plugging. RADIATION DOSE DELIVERED: 712.39mGy.cm Total DLP DATA REPOSITORY: All CT scans at this facility are submitted to the National Radiology Data Registry (NRDR) Dose Index Registry (DIR) with the [employer] (ACR). RADIATION OPTIMIZATION: All CT scans at this facility use at least one of these dose optimization techniques: automated exposure control; mA and/or kV adjustment per patient size (includes targeted exams where dose is matched to clinical indication); or iterative reconstruction.
[2024-10-30] MEDS: Pramipexole 0.25 MG TAB 0.5 MG PO (19:49)
[2024-10-30] MEDS: Atorvastatin 40 MG TAB PO (19:49)
[2024-10-31] VITALS (26 sets, daily range): BP systolic 90–123; BP diastolic 55–79; PULSE 63–83; RESP 11–21; TEMP 35.7–37.1; O2SAT 91–98
[2024-10-31] MEDS: Metoprolol 25 MG TAB PO ×4 (00:24→23:29)
[2024-10-31] MEDS: MORPHine 2 MG/ML SYR 1 MG IVP ×3 (00:24→07:37)
[2024-10-31] MEDS: Aspirin E.C. 81 MG TABEC PO (07:37)
[2024-10-31] MEDS: metFORMIN 500 MG TAB 1000 MG PO (07:37)
[2024-10-31] MEDS: Pantoprazole 40 MG TABCR PO ×2 (07:37→20:34)
[2024-10-31] MEDS: Insulin Aspart 300 UNITS/3 ML PEN SC ×4 (07:38→21:53)
[2024-10-31] MEDS: Empaglifozin 25 MG TAB PO (07:38)
[2024-10-31] MEDS: Loratidine 10 MG TAB PO (07:38)
[2024-10-31] MEDS: DULoxetine 30 MG CAP PO (07:38)
[2024-10-31] MEDS: Fludrocortisone 0.1 MG TAB PO (07:38)
[2024-10-31] MEDS: Apixaban 5 MG TAB PO ×2 (07:38→20:34)
[2024-10-31] MEDS: lamoTRIgine 100 MG TAB PO (07:38)
[2024-10-31] MEDS: Pregabalin 100 MG CAP PO ×3 (07:38→20:35)
[2024-10-31] MEDS: Normal Saline Flush 10 ML SYR IVP ×4 (07:39→20:38)
[2024-10-31] MEDS: Polyethylene Glycol 3350 17 GM PACKET PO (09:07)
--- NOTE | 2024-10-31 09:20 | PDOC.CMPRO ---
Date of service: 10/31/24 Time of Service: 15:03 Care Management Progress Note Progress Note Text Progress Note Text: Mikey remains in the ICU and continues to require close monitoring. Per provider, he will be transitioned to PO pain meds today and will continue on a PO regime for 24 hours prior to discharge. He will go back to the correctional facility with narcotics for complex pain; NECF aware. He will need to follow up with [facility] cardiology in 2-3 weeks. Per Provider, it is anticipated he will be discharged tomorrow. CM will continue to follow. Discharge Potential Discharge Needs: Other (Facility provider f/u) Anticipated Barriers to Discharge: None Identified Patient/Family Education Needs: Review discharge instructions, discuss Ask Me Three Transportation: Facility Transport Plan: Return to [facility] once medically cleared for discharge. Follow up with facility/community providers, [facility] cardiology and discharge plan of care as directed. DOC will provide transportation. Social Determinants of Health Screening Social Determinants of health last assessed in clinic: 10/31/24 Will the Patient Participate in the Screening?: Yes Do you worry about having a steady place to live?: choose not to answer Problems where you live: no known problems In the past 12 months, have you had to go without electric, gas, oil or water in your home?: choose not to answer 1. Within the past 12 months, we worried whether our food would run out before we got money to buy more.: Never true 2. Within the past 12 months, the food we bought just didn't last and we didn't have money to get more.: Never true Has lack of transportation kept you from medical appointments or from doing things needed for daily living?: choose not to answer Has anyone in your life made you feel unsafe or unsupported?: choose not to answer How hard is it for you to pay for the very basics like food, housing, medical care, and heating? Would you say it is:: Not hard at all Do you want help finding or keeping work or a job?: I do not need or want help If for any reason you need help with day-to-day activities such as bathing, preparing meals, shopping, managing finances, etc., do you get the help you need?: I need a lot more help How often do you feel lonely or isolated from those around you?: Never Do you speak a language other than Turkish at home?: No Does the patient want assistance with any of the above?: No Health Related Social Needs Health related social needs: material hardship(utilities) (Z59.12) and problems with daily activities (Z73.9) Health related social needs details: .
[2024-10-31] MEDS: MORPHine 2 MG/ML SYR 0.5 MG IVP ×4 (09:45→16:17)
--- NOTE | 2024-10-31 14:53 | PHA.REVIEW2 ---
Pharmacy Admission Review Admission Clinical Review Admission Pharmacy Review: Major depression, recurrent, chronic (Acute) History of pulmonary embolism (Acute) Heart failure with mildly reduced ejection fraction (HFmrEF, 41-49%) (Acute) Type 2 diabetes mellitus (Acute) Angina pectoris, unstable (Acute) Penicillins Allergy (Verified 10/27/24 19:29) Anaphylaxis shellfish derived Allergy (Verified 10/27/24 19:29) Anaphylaxis Sulfa (Sulfonamide Antibiotics) Allergy (Verified 10/27/24 19:29) Skin Rash diclofenac (From Voltaren) Adverse Reaction (Mild, Unverified 10/28/24 11:11) Skin Rash bee pollen Adverse Reaction (Verified 10/27/24 19:29) Anaphylaxis Resuscitation Status Full Code Height 5 ft 10 in Weight 78 kg Pharmacy Admission Review Renal Dosing Renal Dosing: BUN 17 mg/dL (7-18) 10/29/24 06:05 Creatinine 0.8 mg/dL (0.70-1.30) 10/29/24 06:05 Medications needing adjustments: Reviewed (CrCl 115 mL/min) List of meds needing interventions: Current medications are okay Anticoagulation Anticoagulation: Hgb 12.2 g/dL (13.5-17.5) L 10/29/24 06:05 Hct 36.9 % (40.0-50.0) L 10/29/24 06:05 Plt Count 207 10^3/uL (130-400) 10/29/24 06:05 INR 1.0 (0.9-1.1) 10/27/24 19:30 Creatinine 0.8 mg/dL (0.70-1.30) 10/29/24 06:05 DVT Prophylaxis: Reviewed Medications: Apixaban (5mg BID) Opiate Usage Evaluate Pain Scale/Pains Meds: Reviewed (morphine 0.5mg IVP q2h PRN - 6.5mg / 24hrs) Scheduled Bowel Reg ordered if on Opiates?: Yes (Miralax + PRN docusate) Relevant Labs Relevant Labs: Sodium 144 mmol/L (136-145) 10/29/24 06:05 Potassium 4.0 mmol/L (3.5-5.1) 10/29/24 06:05 Chloride 109 mmol/L (98-107) H 10/29/24 06:05 Magnesium 2.2 mg/dL (1.8-2.4) 10/29/24 06:05 C-Reactive Protein < 0.50 mg/dL (<or=0.5) 10/29/24 13:08 Electrolytes, C-Reactive P, ESR: Reviewed (No new labs for today) DM Control DM Control: Glucose 144 mg/dL (74-106) H 10/29/24 06:05 Finger Stick Blood Glucose 193 1151 Finger Stick Blood Glucose 193 1146 Finger Stick Blood Glucose 193 1146 Finger Stick Blood Glucose 154 0738 Finger Stick Blood Glucose 154 0722 Finger Stick Blood Glucose 154 0722 DM Control: Reviewed Insulin Dosing, Diabetic Medication: Has order for SS insulin and Jardiance 25mg daily Cardiac Review Cardiac Review: Troponin I 11 ng/L (<or=76) 10/29/24 13:08 NT-Pro-B Natriuret Pep 135 pg/mL (<300) 10/27/24 19:30 BP, HR, EF%: Reviewed (BP 90/59, HR WNL) List meds needing interventions: Has order for metoprolol 25mg q8h QTc Review QTc: Reviewed (399 from 10/27/24) IV to PO Switch IV Medications: Reviewed (morphine) Home Meds Home Med List reviewed: Reviewed Relevent Home Meds Not ordered & why?: omeprazole (has order for pantoprazole) H+P says holding isosorbide but that medication is not on patients home med list? Current Meds Current Medication Order Review: Intervened Comments: Patient received iohexol last night for imaging. Reached out to provider as patient had active order for metformin and did receive a dose this morning. Provider asked that the order be put on hold. Resume in 48 hours.
[2024-10-31] MEDS: Docusate Sodium 100 MG CAP PO (16:17)
[2024-10-31] MEDS: Acetaminophen 325 MG TAB 650 MG PO ×2 (16:17→20:34)
--- NOTE | 2024-10-31 17:21 | W.PM.PROGNOT ---
Date of Service Date of service: 10/31/24 Time of Service: 10:00 Assessment and Plan Assessment and plan (1) Angina pectoris, unstable: Status: Acute Assessment and plan: Presumptive diagnosis, however workup here and at [facility] negative for cardiac pathology 6 weeks of persistent intermittent chest pain with multiple ED visits / admissions [facility] September repeat cardiac cath showing no occlusive disease [facility] consulted on this admission, recommended starting nitrates, however low BPs Ranolazine started, now discontinued No improvement of symptoms with nitroglycerin No improvement with GI cocktail Patient declines NSAIDs CRP negative, low suspicion of pericarditis at this time [facility] now advising pain is likely non-cardiac Patient continues to report pain -11/29 and is on PRN morphine Reduced dose of morphine without reducing frequency, was 4 mg q2h, now 1 mg q2h CTA thorax/abdomen negative for aortic dissection, PE, PUD He has complex chronic medical problems that do not currently have a solution Relief from pain with narcotics is appropriate until he is able to see specialists for additional evaluation and care (2) S/P CABG (coronary artery bypass graft): Status: Chronic Assessment and plan: 2021 procedure as well as September 2024 procedure at [facility], no lesions noted (3) CAD (coronary artery disease), [place] coronary artery: Status: Chronic Assessment and plan: Chronic, continue home regimen (4) Type 2 diabetes mellitus: Status: Acute Assessment and plan: Chronic, continue home empagliflozin, metformin Continue SSI (5) Hypotension: Status: Chronic Assessment and plan: Chronic, worse with nitrates, opioids, beta bette Holding isosorbide mononitrate (6) Heart failure with mildly reduced ejection fraction (HFmrEF, 41-49%): Status: Acute Assessment and plan: EF improved from 20's to 40's after 2021 CABG Continue GDMT (7) History of pulmonary embolism: Status: Acute Assessment and plan: PE at the time of recent CABG, continuing on apixaban (8) Degenerative disc disease, cervical: Status: Chronic Assessment and plan: Chronic, unresolved Previously OUD prior to incarceration Now on pregabalin which patient reports is not helpful (9) Alcoholism in recovery: Status: Chronic Assessment and plan: No EtOH intake since incarceration (10) Major depression, recurrent, chronic: Status: Acute Assessment and plan: Continue home regimen Subjective Subjective Interval history since last seen: Mr Mckinnon continues to have sharp, severe chest pain throughout the day and night. Cardiac workup is negative and concluded. Patient has protruding sternal wiring at the site of his CABG. His understanding is that he does not have long to live because he needs surgeries that are no longer possible after his CABG. He gets relief only with morphine. He is happy to switch to PO from IV. Exam Narrative Exam Narrative: General: This is a pleasant male inmate in no distress HEENT: Normocephalic, atraumatic CV: RRR. Visible, protruting sternal wires from CABG. Resp: CTAB GI: NTND +NBS MSK: voluntary motion x4 Neuro: Awake, alert, no focal deficits Objective Last Vital Signs Temp 36.6 C 10/31/24 16:29 Pulse 78 10/31/24 16:19 Resp 19 10/31/24 16:19 BP 99/59 L 10/31/24 16:19 Pulse Ox 92 10/31/24 14:16 Time Spent with Patient Time Spent with Patient: 25-34 minutes Time was spent: preparing to see the patient(eg.review tests), obtaining and/or reviewing separately otained hiistory, ordering medications,tests, procedures, referring, communicating with other health manager intensive care, indepentently interpreting results, counseling the patient and care coordination
[2024-10-31] MEDS: HYDROcodone 10/Acetaminophen 325 TAB PO (18:39)
--- NOTE | 2024-10-31 18:59 | W.PC.ACHO ---
Registration Status: ADM IN Primary Language: Preferred Language: ED Information & Data Chief Complaint Chest Pain 10/27/24 21:55 Triage Note BIBA, STEMI alert. Pt has 10/27/24 19:22 crushing chest pain and a lengthy cardiac hx. 95% vascular occulsion, arterial . 324 ASA, 2 nitro, 150fent per EMS. 18 R AC, Most Recent Vital Signs Temperature 36.2 C L 10/31/24 18:18 Temperature Source Temporal Artery Scan 10/31/24 18:18 Pulse 77 10/31/24 18:18 Pulse 74 10/31/24 18:00 Respiratory Rate 18 10/31/24 18:18 Respiratory Effort Normal, Non-Labored 10/28/24 04:30 Respiratory Depth Normal 10/28/24 04:30 Respiratory Pattern Normal 10/28/24 04:30 Blood Pressure 92/61 L 10/31/24 18:18 Blood Pressure Mean 71 10/31/24 18:18 Blood Pressure Position Sitting 10/28/24 04:30 Pulse Oximetry 98 10/31/24 18:18 Oxygen Delivery Method Room Air 10/31/24 18:18 Oxygen Flow Rate 0 10/31/24 18:18 Pain Level 9 10/31/24 18:39 Allergies Penicillins Allergy (Verified 10/27/24 19:29) Anaphylaxis shellfish derived Allergy (Verified 10/27/24 19:29) Anaphylaxis Sulfa (Sulfonamide Antibiotics) Allergy (Verified 10/27/24 19:29) Skin Rash diclofenac (From Voltaren) Adverse Reaction (Mild, Unverified 10/28/24 11:11) Skin Rash red raised bumps, per pt report. bee pollen Adverse Reaction (Verified 10/27/24 19:29) Anaphylaxis Precautions Isolation Standard precaution 10/27/24 19:29 Active Medications Generic Name Dose Route Start Last Admin Trade Name Freq PRN Reason Stop Dose Admin Acetaminophen 650 mg 10/28/24 04:02 10/31/24 16:17 Acetaminophen 325 Mg Tab PO 650 mg Q4H PRN PRN Administration Hydrocodone Bitart/Acetaminophen 1 tab 10/31/24 17:16 10/31/24 18:39 Hydrocodone 10/Acetaminophen 325 Tab PO 1 tab Q6H PRN PRN Administration Al Hydrox/Mg Hydrox/Simethicone 30 ml 10/28/24 04:02 10/30/24 05:48 Mylanta Suspension 30 Ml Cup PO 30 ml Q2H PRN PRN Administration Apixaban 5 mg 10/28/24 08:30 10/31/24 07:38 Apixaban 5 Mg Tab PO 5 mg BID STEVIE Administration Aspirin 81 mg 10/28/24 08:30 10/31/24 07:37 Aspirin E.C. 81 Mg Tabec PO 81 mg QAM STEVIE Administration Atorvastatin Calcium 40 mg 10/28/24 20:00 10/30/24 19:49 Atorvastatin 40 Mg Tab PO 40 mg HS STEVIE Administration Docusate Sodium 100 mg 10/28/24 04:02 10/31/24 16:17 Docusate Sodium 100 Mg Cap PO 100 mg TID PRN PRN Administration Duloxetine HCl 30 mg 10/28/24 08:30 10/31/24 07:38 Duloxetine 30 Mg Cap PO 30 mg QAM STEVIE Administration Empagliflozin 25 mg 10/28/24 08:30 10/31/24 07:38 Empaglifozin 25 Mg Tab PO 25 mg QAM STEVIE Administration Fludrocortisone Acetate 0.1 mg 10/28/24 08:30 10/31/24 07:38 Fludrocortisone 0.1 Mg Tab PO 0.1 mg QAM STEVIE Administration Insulin Aspart 0 units 10/28/24 08:00 10/31/24 17:12 Insulin Aspart 300 Units/3 Ml Pen SC 6 units 0800,1200,1700,2200 STEVIE Administration Protocol Lamotrigine 100 mg 10/28/24 08:30 10/31/24 07:38 Lamotrigine 100 Mg Tab PO 100 mg QAM STEVIE Administration Lidocaine/Diphenhydr/Alum/Mg/Simeth 10 ml 10/29/24 12:59 10/30/24 13:43 Magic Mouthwash 119 Ml Btl PO 10 ml Q6H PRN PRN Administration Loratadine 10 mg 10/28/24 08:30 10/31/24 07:38 Loratidine 10 Mg Tab PO 10 mg QAM STEVIE Administration Menthol/Methyl Salicylate 0 gm 10/28/24 09:26 10/31/24 10:59 Bengay Greaseless Cr 57 Gm Tube TP 1 applic TID PRN PRN Administration pain Metformin HCl 1,000 mg 10/28/24 17:00 10/31/24 07:37 Metformin 500 Mg Tab PO 1,000 mg On Hold: 10/31/24 10:50 BID@0800,1700 STEVIE Administration Comment: HOLD FOR 48HRS AFTER IOHEXOL Metoprolol Tartrate 25 mg 10/28/24 16:00 10/31/24 16:18 Metoprolol 25 Mg Tab PO 25 mg Q8H STEVIE Administration Nitroglycerin 0.4 mg 10/28/24 04:02 10/30/24 16:28 Nitroglycerin 0.4 Mg Tab SL 0.4 mg Q5 MIN PRN X3 PRN Administration Chest Pain Pantoprazole Sodium 40 mg 10/29/24 20:00 10/31/24 07:37 Pantoprazole 40 Mg Tabcr PO 40 mg BID@0730,2000 STEVIE Administration Polyethylene Glycol 17 gm 10/31/24 09:00 10/31/24 09:07 Polyethylene Glycol 3350 17 Gm Packet PO 17 gm DAILY AM STEVIE Administration Pramipexole Dihydrochloride 0.5 mg 10/28/24 20:00 10/30/24 19:49 Pramipexole 0.25 Mg Tab PO 0.5 mg HS STEVIE Administration Pregabalin 100 mg 10/28/24 08:30 10/31/24 14:04 Pregabalin 100 Mg Cap PO 100 mg TID STEVIE Administration Quetiapine Fumarate 50 mg 10/28/24 20:00 10/30/24 19:50 Quetiapine 50 Mg Tabcr PO 50 mg HS STEVIE Administration Sodium Chloride 0 ml 10/28/24 08:57 10/31/24 16:16 Normal Saline Flush 10 Ml Syr IVP 20 ml PRN PRN Administration Sodium Chloride 0 ml 10/28/24 20:00 10/31/24 07:39 Normal Saline Flush 10 Ml Syr IVP 40 ml BID STEVIE Administration Sodium Chloride 0 ml 10/28/24 08:57 10/29/24 13:54 Normal Saline 10 Ml Vial IJ 10 ml DIRECTED PRN Administration IV IV Catheter Type [Right Saline Lock Antecubital] IV Catheter Type [Left Forearm Saline Lock ] IV Catheter Gauge [Right 18 Antecubital] IV Catheter Gauge [Left 18 Forearm] [id number] Documentation Fingerstick Glucose Start: 10/27/24 20:35 Freq: Status: Complete Protocol: Activity Type Activity Date Activity User E-sign Co-sign Detail Recorded Client Recorded Date Recorded By Document 10/27/24 20:34 BKG DAEMON(5) NVT-BG05 10/27/24 20:35 BKG DAEMON(6) Fingerstick Glucose Start: 10/28/24 04:02 Freq: .ACHS Status: Active Protocol: Activity Type Activity Date Activity User E-sign Co-sign Detail Recorded Client Recorded Date Recorded By Document 10/31/24 16:20 BKG DAEMON(7) NVT-BG05 10/31/24 16:28 BKG DAEMON(8) Intake and Output - 24 Hour Total 10/27/24 19:02 thru 10/31/24 17:39 Intake Total 45090.999 Output Total 85828 Balance -1194.001 Weight 78 kg Intake: IV 3870.999 Oral 8760 Output: Urine 75275 Other: Urine Color Yellow Urine Appearance Clear Urine Odor Normal Falls Risk Assessment History of Falls No History 10/28/24 04:30 Contributing Factors Unstable,Medications 10/28/24 04:30 Ambulatory Aids Independent 10/28/24 04:30 Tubes/Lines With any additional score 10/28/24 04:30 Gait Evaluation No gait disturbance 10/28/24 04:30 Cognition No cognitive impairment 10/28/24 04:30 Fall Total Score 26 10/28/24 04:30 Level of Risk Moderate Risk 10/28/24 04:30 Problems (Last Reviewed 10/28/24 @ 02:16 by Kwaku Morton) Major depression, recurrent, chronic (Acute) History of pulmonary embolism (Acute) Heart failure with mildly reduced ejection fraction (HFmrEF, 41-49%) (Acute) Degenerative disc disease, cervical (Chronic) Depression (Chronic) Hyperlipidemia (Chronic) Pulmonary embolism (Chronic) CHF (congestive heart failure) (Chronic) Alcoholism in recovery (Chronic) Type 2 diabetes mellitus (Acute) Angina pectoris, unstable (Acute) CAD (coronary artery disease), [place] coronary artery (Chronic) Hypotension (Chronic) S/P CABG (coronary artery bypass graft) (Chronic) v v v v v v v v v Sending and/or Receiving Nurses: Please use comment section below to note any information pertinent to the patient hand-off not included above. Information / Comments: Pt pulled from ICU, DOC, L AC IV. Complaining of chest pain and SOB which has been his normal for this admission. Report received from: Lorena Alonso, PLISSE MACHINE OPERATOR
[2024-10-31] MEDS: Atorvastatin 40 MG TAB PO (20:34)
[2024-10-31] MEDS: Pramipexole 0.25 MG TAB 0.5 MG PO (20:34)
[2024-11-01] MEDS: HYDROcodone 10/Acetaminophen 325 TAB PO ×2 (00:52→06:57)
[2024-11-01 03:14] VITALS: BP 94/55; PULSE 53; RESP 18; TEMP 35.6; O2SAT 95
[2024-11-01] MEDS: Polyethylene Glycol 3350 17 GM PACKET PO (05:30)
[2024-11-01 07:14] LABS: Hemoglobin A1C 8.2 % (<5.7)
[2024-11-01 07:18] VITALS: BP 121/76; PULSE 61; RESP 16; TEMP 36; O2SAT 95
[2024-11-01 08:40] VITALS: BP 122/76; PULSE 68; O2SAT 96
[2024-11-01] MEDS: DULoxetine 30 MG CAP PO (08:46)
[2024-11-01] MEDS: Aspirin E.C. 81 MG TABEC PO (08:46)
[2024-11-01] MEDS: Apixaban 5 MG TAB PO (08:47)
[2024-11-01] MEDS: Loratidine 10 MG TAB PO (08:47)
[2024-11-01] MEDS: Metoprolol 25 MG TAB PO ×2 (08:47→16:16)
[2024-11-01] MEDS: Pantoprazole 40 MG TABCR PO (08:47)
[2024-11-01] MEDS: Fludrocortisone 0.1 MG TAB PO (08:47)
[2024-11-01] MEDS: lamoTRIgine 100 MG TAB PO (08:47)
[2024-11-01] MEDS: Empaglifozin 25 MG TAB PO (08:47)
[2024-11-01] MEDS: Insulin Aspart 300 UNITS/3 ML PEN SC ×2 (08:47→13:30)
[2024-11-01] MEDS: Pregabalin 100 MG CAP PO ×2 (08:47→13:30)
[2024-11-01] MEDS: Normal Saline Flush 10 ML SYR IVP (09:03)
--- NOTE | 2024-11-01 09:16 | CMDISCH_ITS ---
Date of service: 11/01/24 Time of Service: 12:29 LACE Index Scoring Tool Questions: Length of Stay (in days): 4 - 6 Was the patient admitted via the E.D.?: Yes Comorbidities: Diabetes w/o Complication and Congestive Heart Failure E.D. Visits: 3 Answers: Total Score: 13 Risk of Readmission: High Risk Care Management Discharge Plan Reason for Hospitalization: Unstable Angina Pectoris, hypotension Discharge Plan: Mikey will return to [facility] today. He should follow up with facility/community providers, [facility] [place] and discharge plan of care as directed. He will be discharged with narcotics for pain management, the facility is aware and doc to doc completed for these medications. DOC will provide transportation. Patient/Family Education Needs: Review of discharge instructions, activity, limitations, and plan of care. Discuss Ask me three. SDOH Health Related Social Needs: Health related social needs material hardship daily ac tivities Health related social needs details . Health related social needs details: .
[2024-11-01] MEDS: Acetaminophen 325 MG TAB 650 MG PO (09:59)
[2024-11-01] MEDS: nitroGLYcerin 0.4 MG TAB SL (09:59)
[2024-11-01 10:51] VITALS: BP 94/72; PULSE 62; RESP 16; TEMP 36.3; O2SAT 95
[2024-11-01] MEDS: MORPHine IR 15 MG TAB PO ×3 (10:59→16:57)
--- NOTE | 2024-11-01 12:40 | W.PM.DS.N ---
Date of service: 11/01/24 Time of Service: 09:00 DS: Diagnosis Discharge Diagnosis (1) Angina pectoris with normal coronary arteriogram: Status: Acute Asessment and Plan: Presumptive diagnosis of unstable angina, however workup here and at [facility] negative for cardiac pathology 6 weeks of persistent intermittent chest pain with multiple ED visits / admissions [facility] [place] September repeat cardiac cath showing no occlusive disease [facility] [place] [place] consulted on this admission, recommended starting nitrates, however low BPs Ranolazine started, now discontinued No improvement of symptoms with nitroglycerin No improvement with GI cocktail Patient declines NSAIDs CRP negative, low suspicion of pericarditis at this time [facility] [place] now advising pain is likely non-cardiac CTA thorax/abdomen negative for aortic dissection, PE, PUD He has complex chronic medical problems that do not currently have a solution Relief from pain with narcotics is appropriate until he is able to see specialists for additional evaluation and care On day of discharge he is on MS contin 15 mg Q12H and morphine IR 15 mg PRN q6h. (2) S/P CABG (coronary artery bypass graft): Status: Chronic Asessment and Plan: 2021 procedure as well as September 2024 cath finding patent grafts at [facility] [place] (3) CAD (coronary artery disease), [place] coronary artery: Status: Chronic Asessment and Plan: Chronic, continue home regimen (4) Type 2 diabetes mellitus: Status: Acute Asessment and Plan: Chronic, continue home empagliflozin, metformin (5) Hypotension: Status: Chronic Asessment and Plan: Chronic, worse with nitrates, opioids, beta bette Holding isosorbide mononitrate, which was recommended by [facility], due to soft pressures (6) Heart failure with mildly reduced ejection fraction (HFmrEF, 41-49%): Status: Acute Asessment and Plan: EF improved from 20's to 40's after 2021 CABG (7) History of pulmonary embolism: Status: Acute Asessment and Plan: PE at the time of recent [id number], continuing on apixaban (8) Degenerative disc disease, cervical: Status: Chronic Asessment and Plan: Chronic, unresolved Previously OUD prior to incarceration Patient reports pregabalin is not helpful (9) Alcoholism in recovery: Status: Chronic Asessment and Plan: No EtOH intake since incarceration (10) Major depression, recurrent, chronic: Status: Acute Asessment and Plan: Continue home regimen Discharge Plan Disposition Patient Disposition: [facility] Condition: Stable Discharge Details Reason For Visit: Unstable Angina Pectoris, Hypotension Admit Date/Time: 10/28/24 02:54 Admit Provider: Kwaku Morton Attending Provider: Kwaku Morton Primary Care Provider: Sadia Griffin Hospital Course Hospital Course: Mikey Mckinnon is a 54 year old man presenting October 27 with chest pain. He has multiple complex comorbidities including cardiac disease with 2021 CABG and September 2024 cath showing patent grafts; sternal wiring which protrudes and stretches the skin on his chest; PE during 2021 CABG on apixaban; degenerative cervical spine disease; alcohol dependency; chronic depression; diabetes on orals. He has had multiple ED presentations here at [facility] and at [facility] [place] for chest pain. [facility] cardiology was consulted on arrival and advised that additional procedures are not indicated after September cath showed no occlusive disease. Patient spasms and grabs his upper left chest and clenches his jaw frequently during interview. He reports that he gets relief with morphine but not with norco, nitroglycerin, GI cocktail nor non-narcotic pain medications. He does appear to have stable vitals throughout the day and is able to get 4-6 hours of sleep without narcotics. Patient's understanding of his prognosis is that he does not have more than a few more years to live; he understands that his CABG precludes additional procedures to address his cervical spine disease and chest pain. He has been worked up appropriately for acute cardiovascular disease including EKGs with sinus rhythm, echocardiogram with EF 45% improved over prior, CTA thorax with no aneurysm/dissection/PE. At this time he is considered medically stable for discharge from the hospital, with urgency to follow up outpatient with [facility] cardiology. At this time he is considered appropriate for narcotics due to his neck pain which apparently requires surgery, and due to his chest pain which appears to be stable angina. Discussed with Vale Paz NETWORK ARCHITECT MANAGER, provider education instructor at [facility]. Home Meds and New Rx's Prescriptions: Continued atorvastatin 40 mg tablet 40 mg PO QHS metoprolol succinate 50 mg tablet extended release 24 hr 50 mg PO QAM aspirin 81 mg tablet,delayed release (DR/EC) 81 mg PO QAM metformin 1,000 mg tablet 1,000 mg PO BIDWMEAL nitroglycerin 0.4 mg tablet, sublingual 0.4 mg sublingual Q5M PRN (Reason: chest pain) pramipexole 0.25 mg tablet See Rx Instructions PO QHS Patient Comments: took 2 tabs 10/17/24 Rx Instructions: 1-2 tabs orally every day at bedtime omeprazole 20 mg capsule,delayed release(DR/EC) 20 mg PO QAM fludrocortisone 0.1 mg tablet 0.1 mg PO QAM lamotrigine 100 mg tablet 100 mg PO QAM loratadine 10 mg tablet 10 mg PO QAM duloxetine 30 mg capsule,delayed release(DR/EC) 30 mg PO QAM quetiapine 50 mg tablet 50 mg PO DAILY PRN (Reason: anxiety or agitation) quetiapine 50 mg tablet extended release 24 hr 50 mg PO QHS Eliquis 5 mg tablet 5 mg PO BID Jardiance 25 mg tablet 25 mg PO QAM Discontinued pregabalin 100 mg capsule 100 mg PO TID Discharge Instructions Instructions: Angina (DC), Preventing an Opioid Overdose Activity:: Activity as Tolerated Equipment/Supplies:: No Equipment Needed Diet:: As Tolerated Discharge Orders Discharge Orders: Discharge Order (Routine); Ordered 11/01/24 Ordered By: Sam Vazquez DS: Summary Time Spent with Patient providing and/or coordinating discharge services: Greater than 30 minutes Status at Discharge Functional status at discharge: independent ambulation Overall status at discharge: patient is back to baseline Mental Status: mental status grossly normal Speech and Movement: speech and movement normal Mood: congruent mood Affect: normal affect Quality:SDOH Health Related Social Needs: Health related social needs material hardship daily activities Health related social needs details . Health related social needs details: . Exam Psych Mental Status: mental status grossly normal Speech and Movement: speech and movement normal Mood: congruent mood Affect: normal affect DS: Data Vitals/I&O Vitals and I&O: Vital Signs Temperature 36.3 C L 11/01/24 10:51 Temperature Source Temporal Artery Scan 11/01/24 10:51 Pulse 62 11/01/24 10:51 Pulse 74 10/31/24 18:00 Respiratory Rate 16 11/01/24 10:51 Respiratory Effort Normal, Non-Labored 10/28/24 04:30 Respiratory Depth Normal 10/28/24 04:30 Respiratory Pattern Normal 10/28/24 04:30 Blood Pressure 94/72 L 11/01/24 10:51 Blood Pressure Mean 79 11/01/24 10:51 Blood Pressure Position Sitting 10/28/24 04:30 Pulse Oximetry 95 11/01/24 10:51 Oxygen Delivery Method Room Air 11/01/24 10:51 Oxygen Flow Rate 0 11/01/24 10:51 Pain Level 10 11/01/24 10:58 Comment Pt stated his chest hurt and it is hard to breath, nurse notified. 10/31/24 19:31 Intake & Output 10/31/24 11/01/24 11/01/24 23:59 11:59 23:59 Intake Total 1520 / 2830 Output Total 900 / 4125 Balance 620 / -1295 Intake: IV Oral 1500 / 2770 Output: Urine 900 / 4125 Other: Urine Color Yellow Urine Appearance Clear Clear Data Completed and Pending Labs on day of discharge: Labs from last 24 hours 11/01/24 06:00 Hemoglobin A1c 8.2 H PFSH All Active Problems (Updated 11/01/24 @ 12:41 by Sam Vazquez MD) Angina pectoris with normal coronary arteriogram (Acute) Major depression, recurrent, chronic (Acute) History of pulmonary embolism (Acute) Heart failure with mildly reduced ejection fraction (HFmrEF, 41-49%) (Acute) Degenerative disc disease, cervical (Chronic) Depression (Chronic) Hyperlipidemia (Chronic) Pulmonary embolism (Chronic) CHF (congestive heart failure) (Chronic) Alcoholism in recovery (Chronic) Type 2 diabetes mellitus (Acute) Angina pectoris, unstable (Acute) CAD (coronary artery disease), [place] coronary artery (Chronic) Hypotension (Chronic) S/P CABG (coronary artery bypass graft) (Chronic) Chest pain (Acute) Social History Smoking/Tobacco Use Status: Never Smoking risk assessment performed?: Yes Alcohol Intake: current Alcohol Intake frequency: holidays/special occasions only Substance use type: does not use Housing: other Time Spent with Patient Time Spent with Patient: 45-69 minutes Time was spent: preparing to see the patient(eg.review tests), obtaining and/or reviewing separately otained hiistory, ordering medications,tests, procedures, referring, communicating with other health lawn care professional, indepentently interpreting results, counseling the patient and care coordination
[2024-11-01] MEDS: Acetaminophen 500 MG TAB PO (13:30)
[2024-11-01 14:44] VITALS: BP 106/73; PULSE 63; RESP 16; TEMP 36.2; O2SAT 95
== END 2024-11-01 17:03 | DRG 303 ==
LOC: ER 10-28 03:57 → ICU 10-28 04:02 → MS 10-31 18:17
PROVIDERS: Family Medicine; Student in an Organized Health Care Education/Training Program; Admitting Provider Family Medicine; Emergency Provider Student in an Organized Health Care Education/Training Program; PCP Nurse Practitioner Family; Responsible Provider Family Medicine; Visit Provider Family Medicine
DX: I25.110 Atherosclerotic heart disease of native coronary artery with unstable angina pectoris (principal); I50.22 Chronic systolic (congestive) heart failure; F33.9 Major depressive disorder, recurrent, unspecified; Z95.1 Presence of aortocoronary bypass graft; I95.2 Hypotension due to drugs; E11.9 Type 2 diabetes mellitus without complications; Z86.711 Personal history of pulmonary embolism; E78.2 Mixed hyperlipidemia; F10.21 Alcohol dependence, in remission; M50.30 Other cervical disc degeneration, unspecified cervical region; Z95.5 Presence of coronary angioplasty implant and graft; Z79.84 Long term (current) use of oral hypoglycemic drugs; I25.2 Old myocardial infarction; G89.29 Other chronic pain; Z79.01 Long term (current) use of anticoagulants; Z79.891 Long term (current) use of opiate analgesic; Z59.87 Material hardship due to limited financial resources, not elsewhere classified; Z73.89 Other problems related to life management difficulty
CPT/HCPCS: 00123; 36415; 36416; 71275; 80053; 80307; 82962; 83690; 85027; 87637; 93005; 93308; 96361; 96374; 99291; 71045; 74174; 83036; 83605; 83735; 83880; 84443; 84484; 85025; 85379; 85610; 85730; 86140; 93010; 93306; 99223; 99232; 99233; 99239; J1815; J1885; J2270; J2470; J3010; J3490